=== PATIENT | male | born 1955 | race Caucasian/White ===

== ENCOUNTER 2018-10-13 23:12 | Emergency (ER) | payer BC, OTHER, MEDICAID, SELFPAY ==
[2018-10-13 23:15] VITALS: BP 159/87; PULSE 78; RESP 18; TEMP 36.8; O2SAT 100; BMI 28.0
--- NOTE | 2018-10-13 23:17 | DI.CT.S_ITS ---
PROCEDURE: CT LUMBAR SPINE WO CON INDICATIONS: pain, fall TECHNIQUE: Noncontrast 3 mm thick sections acquired from the T12 level to the sacrum. Sagittal and coronal reformats were constructed. For radiation dose reduction, the following was used: automated exposure control. COMPARISON: [facility], , SPINE LUMB 2 OR 3VW, 09/05/2011, 12:20. FINDINGS: Image quality: Excellent. Bones: There is normal bony alignment. Acute L1 compression fracture involving the superior endplate is noted. L1 compression fracture results in approximately 20% loss of normal vertebral body height. No retropulsed fragments or kyphosis associated with the L1 compression fracture. Left L1 and L2 transverse process fracture is noted. Large Schmorl's node noted in the superior endplate of the L3 vertebral body. No suspicious lytic or blastic bony lesions. Multilevel degenerative disc disease. No pars defects. Soft tissues: No retroperitoneal masses or hematomas. Visualized aorta is normal in caliber. IMPRESSION: 1. Acute L1 compression fracture. 2. Acute left L1 and L2 transverse process fractures. Dictated by: Rebecca Trujillo MD, PhD on 10/14/2018 at 7:23 Approved by: Rebecca Trujillo MD, PhD on 10/14/2018 at 7:27
--- NOTE | 2018-10-13 23:17 | DI.CT.S_ITS ---
PROCEDURE: CT HEAD/BRAIN WO CON INDICATIONS: fall, nauseated TECHNIQUE: Noncontrast 4.5 mm thick angled axial sections acquired from the foramen magnum to the vertex, with coronal and sagittal reformats. For radiation dose reduction, the following was used: automated exposure control, adjustment of mA and/or kV according to patient size. COMPARISON: [facility], CT, CT HEAD WITHOUT CONTRAST, 07/16/2018, 12:30. FINDINGS: Image quality: Excellent. CSF spaces: Basal cisterns are patent. No extra-axial fluid collections. The ventricles are symmetric in size and shape. Brain: No intracranial bleeds or masses. There is cerebral volume loss for age, with resultant ventricular and sulcal prominence. There are periventricular and deep white matter chronic small vessel ischemic changes. There is intracranial internal carotid artery atherosclerosis. Skull and face: Calvarium and visualized facial bones appear intact, without suspicious lesions. Small left parietal scalp hematoma is hyperdense mass; please correlate with direct physical findings. Sinuses: Visualized sinuses and mastoids are clear. IMPRESSION: No acute intracranial disease process. Dictated by: Rebecca Trujillo MD, PhD on 10/14/2018 at 7:20 Approved by: Rebecca Trujillo MD, PhD on 10/14/2018 at 7:22
--- NOTE | 2018-10-13 23:17 | DI.CT.S_ITS ---
PROCEDURE: CT CERVICAL SPINE WO CON INDICATIONS: C7-T1 pain after fall TECHNIQUE: Noncontrast 3 mm thick sections acquired from the skull base to the T4 level. Sagittal and coronal reformats were then constructed. For radiation dose reduction, the following was used: automated exposure control, adjustment of mA and/or kV according to patient size. COMPARISON: None. FINDINGS: Image quality: Excellent. Bones: No fractures or dislocations. Visualized superior ribs are intact. Spine degenerative disc disease and facet arthropathy. Soft tissues: Prevertebral soft tissues are normal in thickness. No paravertebral hematomas. No apical pneumothoraces. IMPRESSION: No fracture. No acute osseous lesion. If symptoms and/or clinical suspicion for pathology persists, evaluation with MRI may be helpful for further assessment. Dictated by: Rebecca Trujillo MD, PhD on 10/14/2018 at 7:27 Approved by: Rebecca Trujillo MD, PhD on 10/14/2018 at 7:31
--- NOTE | 2018-10-13 23:18 | ED_ITS ---
HPI - Fall General Chief Complaint: Fall Stated Complaint: Fall in shower Time Seen by Provider: 10/13/18 23:16 Source: EMS Mode of arrival: EMS History of Present Illness HPI Narrative: Patient is a 62-year-old male who has neuropathy in his feet presenting after a fall in the shower. He said his left leg has been gradually getting weaker he fell in the shower hitting his head and his back in the bath tub. He did not lose consciousness he is not on any anti-platelet or anticoagulation medication. He denies any vomiting but is starting to feel nauseated. He has some neck pain and back pain. he has chronic neuropathy and is a diabetic. His now at bedside states that they were out having a nice dinner. He takes lactulose, would have assuming is liver failure. He states that he was at [facility] for 160 days starting in January. He took his lactulose this evening. When they got home they were trying very quickly to get into the house so he would use the restroom. He unfortunately had an accident. He got into the shower so he could clean up, when he says he lost his balance falling backwards. Related Data Previous Rx's Medication Instructions Recorded hydrocodone-acetaminophen [Avoca] 1 tab PO Q4-6H PRN #10 tab 10/14/18 Allergies Allergy/AdvReac Type Severity Reaction Status Date / Time No Known Drug Allergies Allergy Verified 10/13/18 23:17 Review of Systems Review of Systems ROS Unobtainable: All systems reviewed & are unremarkable except as noted in HPI and below Constitutional Denies chills, Denies fever(s), Denies lethargy and Denies weakness Eyes Denies blind spots and Denies blurry vision ENT Ears, Nose, Mouth, and Throat: Reports neck pain Cardiovascular Denies chest pain, Denies irregular heart rhythm, Denies lightheadedness, Denies palpitations, Denies dyspnea, Denies dyspnea on exertion and Denies orthopnea Respiratory Denies cough, Denies dyspnea, Denies dyspnea on exertion and Denies wheezing Gastrointestinal Gastrointestinal: Denies abdominal pain, Denies change in bowel habits, Denies diarrhea, Denies nausea and Denies vomiting Genitourinary Denies hematuria, Denies flank pain, Denies urinary incontinence and Denies urinary urgency Musculoskeletal Reports as per HPI, Reports back pain, Reports muscle weakness, Reports neck pain and Reports numbness (Chronic neuropathy) Integumentary/Breasts Denies pruritus, Denies erythema, Denies rash and Denies wounds Neurologic Reports as per HPI, Reports numbness (Chronic neuropathy) and Denies weakness Endocrine Denies palpitations Allergic/Immunologic Denies wheezing Exam Initial Vital Signs Initial Vital Signs: Vital Signs Temperature 98.3 F 10/13/18 23:15 Pulse Rate 78 10/13/18 23:15 Respiratory Rate 18 10/13/18 23:15 Blood Pressure 159/87 H 10/13/18 23:15 Pulse Oximetry 100 10/13/18 23:15 GENERAL: Alert well-appearing male and in no acute distress. HEENT: Head atraumatic,EOMI, pupils reactive, face symmetric NECK: The patient is tender midline about C6-C7 area. C-collar is placed in the ED. No step-off appreciated. CARDIOVASCULAR: Regular rate and rhythm without murmurs, rubs or gallops. RESPIRATORY: Breath sounds equal bilaterally, no wheezes rales or rhonchi. ABDOMEN: Soft, nontender. Normoactive bowel sounds all 4 quadrants. No guarding or rebound. BACK: Patient has midline lumbar tenderness no sign of trauma. he is tender at L1-L2 area. No step-offs appreciated : No CVA tenderness EXTREMITIES: Normal range of motion, no clubbing or edema. Neurovascularly intact NEUROLOGICAL: Alert and oriented x4.Normal gait and speech. Cranial nerves II through XII grossly intact. SKIN: Warm, dry, no laceration, no petechiae, no rashes or lesions. [facility] Medical History Alcoholism (Acute) Diabetes (Acute) Neuropathy (Acute) Social History (Updated 10/14/18 @ 04:29 by Bhakti Tony DO) marital status: Smoking Status: Former smoker Social History marital status: Smoking Status: Former smoker Course Orders Ordered: ED Orders 10/13/18 23:17 CT cervical spine wo con Stat CT head/brain wo con Stat CT lumbar spine wo con Stat 10/13/18 23:20 XR hip w pel if done LT 2V Stat Discontinued Medications Hydrocodone Bitart/Acetaminophen (Vicodin Prepack) 1 bottle MISC SEEINSTR ONE Stop: 10/14/18 02:18 Last Admin: 10/14/18 02:21 Dose: 1 bottle Hydrocodone Bitart/Acetaminophen (Avoca 5/325) 2 tab PO NOW ONE Stop: 10/14/18 02:18 Last Admin: 10/14/18 02:24 Dose: 2 tab Ketorolac Tromethamine (Toradol) 30 mg IV NOW ONE Stop: 10/14/18 00:20 Last Admin: 10/14/18 00:00 Dose: 30 mg Ondansetron HCl (Zofran Odt) 4 mg SL NOW ONE Stop: 10/13/18 23:22 Last Admin: 10/14/18 00:22 Dose: Not Given Ondansetron HCl (Zofran) 4 mg IV NOW ONE Stop: 10/14/18 00:20 Last Admin: 10/14/18 00:28 Dose: 4 mg Ondansetron HCl (Zofran) 4 mg IV NOW ONE Stop: 10/14/18 00:20 Last Admin: 10/14/18 00:00 Dose: 4 mg Consultations Consultation #1: Dr. Kaur orthopedics on-call updated and patient's CT. He has reviewed and self. He states patient can go home with walker he will need to follow up in the office to get a back brace. Time: 02:18 Vital Signs - 8 hr 10/13/18 23:15 10/14/18 02:00 Temperature 98.3 F Pulse Rate 78 84 Respiratory Rate 18 16 Blood Pressure 159/87 H Blood Pressure [Left Arm] 148/76 H Pulse Oximetry 100 97 MDM - Fall Imaging Data CT scan - head: Radiologist's impression: Patient report: No acute intracranial trauma CT cervical spine: Radiologist's impression: No significant abnormalities CT lumbar: Radiologist's impression: Acute compression fracture superior endplate of L1. Acute left L1 and L2 transverse process fractures. [facility] Narrative Medical decision making narrative: Actually started becoming quite nauseous and started throwing up while the ED. Head CT is negative. feeling better after things have settled. Zofran seems to help nausea. Patient is ambulatory with a walker without any difficulty at all. I discussed with him and showed him the had to get up safely with log rolling. I discussed with and patient that he will need a back brace. They understand agree they would like to go home. They will follow up with Orthopedics tomorrow. Ortho has also been given patient's contact information. Discharge Plan Departure Patient Disposition: Home Clinical Impression: Fracture of transverse process of lumbar vertebra Qualifiers: Encounter type: initial encounter Fracture type: closed Qualified Code(s): S32.009A - Unspecified fracture of unspecified lumbar vertebra, initial encounter for closed fracture Closed compression fracture of L1 vertebra Qualifiers: Encounter type: initial encounter Qualified Code(s): S32.010A - Wedge compression fracture of first lumbar vertebra, initial encounter for closed fracture Discharge Date/Time: 10/14/18 02:48 Interventions: ED Discharge Assessment Last Done: 10/14/18 02:48 Instructions: Vertebral Compression Fracture, DI for Transverse Process Fracture Activity Restrictions/Additional Instructions: *You have been diagnosed with L1 compression fracture, transverse process fractures of L1 and L2 *What to do: Logroll to sit up. You will need a back brace which will be provided by Orthopedics tomorrow. Walk with a walker or cane. *Continue to take medications as directed Avoca 1 tablet every 4 hours or 2 tablets every 6 hours *Follow up with your primary care provider in 2-3 days, call Orthopedics tomorrow 1st thing in the morning for follow-up. Dr. Kaur is aware *Return to ER if you should have increasing weakness, loss of urine or bowel that is abnormal, increasing pain or any new, worsening or concerning symptoms CONTROLLED SUBSTANCE DISCHARGE (Narcotoic/benzodiazepine/Flexeril/Phenergan) 1. You have been prescribed narcotic medications, it does have acetaminophen/Tylenol/paracetamol in it so do not take extra Tylenol or Tylenol containing products 2. Please understand that we cannot provide further refills of narcotics, benzodiazepines or controlled substances through the ED and her pain management will need to be through your provider. 3. While on these medications you cannot drive or operate heavy machinery. 4. You cannot sign legal documents or perform any duties such as this. 5. As long as you're taking opiate pain medications he should also be taking a stool softener such as Colace, Dulcolax, MiraLAX or prune juice, to help avoid constipation. Prescriptions: New hydrocodone-acetaminophen [Avoca] 5-325 mg tablet 1 tab PO Q4-6H PRN (Reason: pain) Qty: 10 RF: 0 Referrals: [facility] [Provider Group]
--- NOTE | 2018-10-13 23:20 | DI.RAD.S_ITS ---
PROCEDURE: XR HIP W PEL IF DONE LT 2V INDICATIONS: fall pain TECHNIQUE: AP pelvis with lateral view of the left hip. COMPARISON: None. FINDINGS: Bones: No displaced fractures or dislocations. Pelvic ring appears intact. There are degenerative changes in the lower lumbar spine. No suspicious bony lesions. Soft tissues: The visualized bowel gas pattern is normal. No suspicious soft tissue calcifications. IMPRESSION: 1. No fracture or dislocation identified. Concordant with preliminary interpretation. Dictated by: David Alvarenga M.D. on 10/14/2018 at 9:13 Approved by: David Alvarenga M.D. on 10/14/2018 at 9:16
[2018-10-14] MEDS: KETOROLAC 60 MG/2 ML VIAL 30 MG IV
[2018-10-14] MEDS: ONDANSETRON 4 MG/2 ML INJ IV ×2 (00:28)
--- NOTE | 2018-10-14 00:36 | PC.NURSE ---
Accompanied patient to CT and xray for C-spine stabilization. Pt feeling nauseous. Administered 4mg Zofran IV prior to going to Radiology department, which helped nausea. On the way back from Radiology, pt felt nauseous again and vomited. Supported C-spine while pt vomited. Assisted pt back to his room, cleaned him up, and gave another 4mg Zofran IV, which helped his nausea. Provider aware. Denies new symptoms or pain after transfer from Radiology.
[2018-10-14 02:00] VITALS: BP 148/76; PULSE 84; RESP 16; O2SAT 97
[2018-10-14] MEDS: HYDROCODONE/ACET 5/325 PREPACK 1 BOTTLE MISC (02:21)
[2018-10-14] MEDS: HYDROCODONE/ACET 5/325 TABLET 2 TAB PO (02:24)
== END 2018-10-14 02:48 | disposition home or self-care (01) ==
PROVIDERS: Emergency Provider Emergency Medicine
DX: S32.010A Wedge compression fracture of first lumbar vertebra, initial encounter for closed fracture (principal); S09.90XA Unspecified injury of head, initial encounter; M54.2 Cervicalgia; R11.2 Nausea with vomiting, unspecified; E11.8 Type 2 diabetes mellitus with unspecified complications; W18.39XA Other fall on same level, initial encounter; Y93.E1 Activity, personal bathing and showering
CPT/HCPCS: 36591; 70450; 72125; 72131; 73502; 96374; 96375; 99282; 99284; J1885; J2405

== ENCOUNTER 2019-04-06 14:14 | Outpatient (CLI) | payer BC, OTHER, MEDICAID, SELFPAY ==
[2019-04-06] VITALS (8 sets, daily range): BP systolic 131–147; BP diastolic 70–84; PULSE 68–83; RESP 16–18; TEMP 36.2; O2SAT 96–99
--- NOTE | 2019-04-06 14:20 | DI.RAD.S_ITS ---
PROCEDURE: PAIN L INTERLAMINAR/CAUDAL INJ INDICATIONS: COCCYX FRACTURE FINDINGS: Fluoroscopic spot filming was performed to verify placement of spinal needles at the coccyx level(s), as labeled on the films. Appropriate location(s) of the needle tip(s) was confirmed by injection of iodinated contrast. IMPRESSION: Fluoroscopy for pain management. Dictated by: Angelica Zarate M.D. on 04/06/2019 at 16:00 Approved by: Angelica Zarate M.D. on 04/06/2019 at 16:00
[2019-04-06] MEDS: MIDAZOLAM 5 MG/5 ML VIAL IV (15:17)
[2019-04-06] MEDS: fentaNYL 100 MCG/2 ML INJ 50 MCG IV (15:17)
[2019-04-06] MEDS: BETAMETHASONE 30 MG/5 ML MDV 12 MG INJ (15:24)
[2019-04-06] MEDS: IOPAMIDOL 15 ML VIAL 3 ML INJ (15:24)
[2019-04-06] MEDS: BUPIVACAINE 0.5% (PF) VIAL 2 ML INJ (15:24)
--- NOTE | 2019-04-06 15:28 | PC.NURSE ---
ASSISTING PT OFF TABLE AND TRANSPORTING TO POST PROC AREA IN STABLE CONDITION. PASSING RN CARE OF PT OFF TO MICHELLE Chery RN.
--- NOTE | 2019-04-06 15:30 | P.PCN_ITS ---
Procedures Date/Time Date of procedure: 04/06/19 Time of procedure: 15:30 General Procedure description: PREOP DIAGNOSIS 1. MULTILEVEL SPINAL STENOSIS, 2. POST FUSION SYNDROME, POST OP DIAGNOSIS 1. MULTILEVEL SPINAL STENOSIS, 2. POST FUSION SYNDROME, PROCEDURES 1. FLUOROSCOPICALLY GUIDED CONTRAST CONTROLLED COCCYX STEROID INJECTION SURGEON: Hung Chang, DO INDICATIONS Kin is referred by Dr. Healy for treatment of Multilevel Stenosis FINDINGS Coccyx Fx s/p Fall DESCRIPTION OF PROCEDURE Fluoroscopically guided, contrast controlled coccyx epidural steroid injection with Conscious Sedation Following review of allergy and review of potential side effects and complications, including but not necessarily limited to infection, allergic reaction, local tissue breakdown, temporary or permanent nerve injury, stroke, paralysis, and possible , the patient indicated that they understood and agreed to proceed. An informed consent document was signed by the patient, witnessed by a nurse, and placed in the patient's chart. Additionally, other treatment options including medications, modalities, and physical therapy were reviewed with the patient. After review of previous anaesthesic history and IV conscious sedation the patient was deemed safe to proceed with todays procedure with IV conscious sedation as ASA class II designation. Safety time-out was performed to confirm patient ID, procedure to be performed and site of procedure. IV sedation was accomplished with a combination of 2mg of Versed and 50mcg of Fentanyl administered by the RN after DO order, titrated to patient comfort during the co urse of the procedure while the patient remained responsive to all verbal commands In the prone position, following sterile prep and drape of the lumbar region, the coccyx was identified fluoroscopically. The skin was anesthetized via a 25- gauge, 1.5-inch needle with approximately 2cc of 1% lidocaine solution. At this point, a 25-gauge, 2.5-inch needle was atraumatically introduced and advanced under fluoroscopic guidance to the corresponding sacral hiatus and entering the sacral canal. Following negative aspiration, injection of approximately 0.3 cc of Isovue 300 confirmed interarticular placement without vascular uptake. Radiological data, including multiple fluoroscopic views of the lumbosacral spine, reveal a spinal needle in the Sacro-coccygeal joint. Subsequent views show flow of contrast material superiorly and inferiorly in the coccyx without vascular or intrathecal uptake. At this point, a total of 6 cc including 2cc or 12mg of betamethasone and 1cc of 0.25% marcaine solution was injected without complication. The patient tolerated the procedure well without signs or symptoms of complications prior to transfer to the recovery area continued monitoring withou t incident. The patient was then transferred to the recovery area where they were observed for an appropriate period of time after the injection. The patient reported a VAS score of 8 prior to the procedure and a post-procedure VAS of 2. Fluorscopy Time: 16.7sec Total Conscious Sedation Time: 24min POST OP INSTRUCTIONS The patient was provided a Pain Log to continue to record their response to the target-specific procedure prior to their follow-up visit with the referring physician. Additionally, specific post-injection care instructions and a contact number to our office were provided if concerns arise regarding possible complications associated with the procedure are suspected. Hung Chang DO Complications: none
== END 2019-04-06 16:05 | disposition home or self-care (01) ==
LOC: RAD 14:19
PROVIDERS: Visit Provider Physical Medicine & Rehabilitation
DX: M48.07 Spinal stenosis, lumbosacral region (principal); M48.061 Spinal stenosis, lumbar region without neurogenic claudication; M53.3 Sacrococcygeal disorders, not elsewhere classified; S32.2XXA Fracture of coccyx, initial encounter for closed fracture; W19.XXXA Unspecified fall, initial encounter; Z98.1 Arthrodesis status
CPT/HCPCS: 62323; 99152; J0702; J1100; J2250; J3010

== ENCOUNTER → 2020-04-26 10:32 | Outpatient (CLI) | payer MEDICARE, BC, SELFPAY ==
[2020-04-26 12:05] LABS: Add Manual Diff / Slide Review NO; Basophils Absolute Auto 0 /uL (0-100); Basophils Percent Auto 0.3 % (0-2); Eosinophils Absolute Auto 500 /uL (0-450); Eosinophils Percent Auto 5.5 % (2-4); Hematocrit 41.9 % (41-53); Hemoglobin 14.1 g/dL (13.5-17.5); Lymphocytes Absolute Auto 1900 /uL (1100-4500); Lymphocytes Percent Auto 22.8 % (25-40); Mean Corpuscular HGB Conc 33.6 % (30-36); Mean Corpuscular Hemoglobin 28.4 PG (26-34); Mean Corpuscular Volume 84.6 fL (80-100); Monocytes Absolute Auto 700 /uL (0-900); Monocytes Percent Auto 7.8 % (3-14); Neutrophils Absolute Auto 5300 /uL (1500-7000); Neutrophils Percent Auto 63.6 % (50-75); Platelet Count 150 X10^3/uL (150-400); Red Blood Cell Count 4.96 X10^6/uL (4.5-5.9); Red Cell Distribution Width 14.4 % (11.6-14.8); White Blood Cell Count 8.4 X10^3/uL (4.5-11.0)
[2020-04-26 12:26] LABS: BUN Creatinine Ratio 22.9 (6-22); Blood Urea Nitrogen 19 mg/dL (9-20); Calcium 9.9 mg/dL (8.4-10.2); Carbon Dioxide 25 mmol/L (22-32); Chloride 100 mmol/L (98-107); Estimated Glomerular Filt Rate > 60.0 mL/min (>60); Glucose 296 mg/dL (80-110); HEMOLYSIS < 15 (0-50); Potassium 3.9 mmol/L (3.4-5.1); Sodium 136 mmol/L (137-145)
[2020-04-26 13:13] LABS: COVID19 -Nasal RAPID Negative (Negative)
== END ==
PROVIDERS: Physician Assistant; PCP Nurse Practitioner; Referring Provider Orthopaedic Surgery; Visit Provider Orthopaedic Surgery
DX: Z01.818 Encounter for other preprocedural examination (principal); Z01.812 Encounter for preprocedural laboratory examination; Z11.59 Encounter for screening for other viral diseases
CPT/HCPCS: 36415; 80048; 85025; 87635; 93005

== ENCOUNTER 2020-04-27 13:22 | Day surgery (SDC) | payer MEDICARE, BC, SELFPAY ==
[2020-04-25 07:34] VITALS: BMI 26.9
[2020-04-27] VITALS (8 sets, daily range): BP systolic 151–175; BP diastolic 70–81; PULSE 60–68; RESP 12–18; TEMP 36.2–36.4; O2SAT 95–98; BMI 26.9
--- NOTE | 2020-04-27 | DI.RAD.S_ITS ---
PROCEDURE: XR LUMBAR SPINE 2-3V INDICATIONS: L4 KYPHOPLASTY TECHNIQUE: 6 views of the lumbar spine were acquired. COMPARISON: None. FINDINGS: Spot fluoroscopic intraoperative findings demonstrating L4 kyphoplasty. Expected intraoperative appearance. Dictated by: Martinez Espinal M.D. on 04/28/2020 at 10:40 Approved by: Martinez Espinal M.D. on 04/28/2020 at 10:41
--- NOTE | 2020-04-27 | PATH_ITS ---
[facility] Accession Number: [id number] . 01 Material submitted: . vertebral column - L4 VERTEBRAL BIOPSY . 01 Clinical history: . SDC . 01 Diagnosis: Bone, L4 Vertebral, Biopsy: Trabecular bone with new bone formation, marrow fibrosis, and scant hematopoietic elements. Negative for malignancy. [facility] 05/02/2020 1523 Local . 01 Comment: An *immunostain to broad spectrum cytokeratins, DOMITILA, is performed, with the control stained appropriately, which is negative for an occult metastatic carcinoma. . * This test was developed and its performance characteristics determined by [employer] It has not been cleared or approved by the U.S. Food and Drug Administration. The FDA has determined that such clearance or approval is not necessary. This test is used for clinical purposes. It should not be regarded as investigational or for research. . 01 Electronically signed: . Farzana Stevens MD, Pathologist NPI- [id number] . 01 Gross description: . L4 VERTEBRAL BIOPSY: Received in formalin are 2 fragment(s) of glez, hard bone measuring 0.6 x 0.3 x 0.3 cm to 0.7 x 0.3 x 0.3 cm submitted entirely in 1 cassette(s) /QBJ 04/28/2020 0647 Local . 01 Pathologist provided ICD-10: S32.040A . 01 CPT . 064448, [id number] Performed at: 01 [facility] [address] [place] [address], [place], [place] [id number] MD David Venegas MD Phone: [phone]
[2020-04-27] MEDS: LACTATED RINGERS 1,000 ML 42 ML IV (13:49)
--- NOTE | 2020-04-27 14:23 | PM.PREOP ---
Pre-operative Note COVID-19 COVID-19 status: Negative Result date/Date tested (Pos, Neg/Pending): 04/26/20 Interval Note History & Physical reviewed/Exam performed by Physician: Yes Changes to H&P: No
--- NOTE | 2020-04-27 15:15 | PM.OP.1 ---
Operative Date/Time/Diagnoses Date of procedure: 04/27/20 Time of procedure: 15:51 Pre-op diagnosis: L4 compression fracture Osteoporosis with current pathologic fracture Back pain Post-op diagnosis: same Procedure & Clinicians Procedure: L4 kyphoplasty Same procedure as scheduled: Yes Indications: [age] year old male with intractable pain from an acute L4 compression fracture. They had failed conservative management and requested operative intervention. Risks and benefits of surgery were discussed and appropriate consents were obtained. Surgeon: Antolin Healy Click Yes if Unassisted: Yes Operative Notes Findings: None Closure Type: primary Specimen(s): other (L4 bone biopsy) Estimated Blood Loss (mL): 5 Procedure in detail: The patient was brought to the operating room and intubated on the table. They were then rolled over to the well-padded prone position. Time-out was performed. We confirmed positioning with two fluoroscopy views. The back was prepped and draped in the standard sterile fashion. Preoperative antibiotics were given. Using fluoroscopic guidance, the planned incision site was infiltrated with Marcaine with epinephrine and injected down to the entry site of the left pedicle of L4. A small stab incision was made and we advanced a Jamshiedi needle down the left pedicle into the vertebral body. A bone biopsy was harvested from this and sent to pathology. We then passed the DFine osteotome and opened it up to create a void inside the vertebral body. We then began injecting the cement. This was done with frequent fluoroscopy imaging. There was no extravasation. Once we had good fill of the L4 vertebral body the injection was stopped and the trocars were removed. Final x-rays were taken. The wound was cleaned. Steri-Strips and sterile dressing were placed. Patient was rolled over, extubated, and brought to recovery without complications. Complications: none Post-operative Condition: stable Disposition: PACU Plan for aftercare: Outpatient. Activity as tolerated.
[2020-04-27] MEDS: CEFAZOLIN 2 GM/100 ML FROZ.PIGGY IV (15:20)
--- NOTE | 2020-04-27 15:37 | SUR.OPER ---
Prone on spine table, head in foam head support, padded chest and pelvic supports, gel pad at knees, lower legs supported by pillows; nipples, genitalia and toes free of pressure, arms secured on foam padded arm boards at <90 degrees abduction. Tape over blanket at thigh secured to table.
[2020-04-27] MEDS: BUPIVACAINE 0.25% W/ EPI (PF) 10 ML VIAL 20 ML INJ (15:43)
[2020-04-27] MEDS: HYDROMORPHONE 2 MG INJ IV ×2 (15:59→16:19)
[2020-04-27] MEDS: ONDANSETRON 4 MG/2 ML INJ IV (15:59)
[2020-04-27] MEDS: fentaNYL 100 MCG/2 ML INJ IV ×2 (16:00→16:18)
[2020-04-27] MEDS: OXYCODONE/ACETAMINOPHEN 5/325 TABLET 1 TAB PO ×2 (16:08→16:39)
== END 2020-04-27 17:17 | disposition home or self-care (01) ==
PROVIDERS: PCP Nurse Practitioner; Referring Provider Orthopaedic Surgery; Visit Provider Orthopaedic Surgery
PROC: (CPT 22514; principal; 2020-04-27 15:15)
DX: M80.08XA Age-related osteoporosis with current pathological fracture, vertebra(e), initial encounter for fracture (principal); I10 Essential (primary) hypertension; E11.9 Type 2 diabetes mellitus without complications; Z79.84 Long term (current) use of oral hypoglycemic drugs
CPT/HCPCS: 22514; 72100; 76000; 82962; C1776; J0330; J0690; J1170; J2405; J2704; J3010

== ENCOUNTER 2020-05-30 06:02 | Day surgery (SDC) | payer MEDICARE, BC, SELFPAY ==
[2020-05-30] VITALS (10 sets, daily range): BP systolic 143–162; BP diastolic 65–80; PULSE 61–77; RESP 14–16; TEMP 36.3–37; O2SAT 92–97; BMI 31.5
--- NOTE | 2020-05-30 | PATH_ITS ---
[facility] Accession Number: [id number] . 01 Material submitted: . bone - L5 VERTEBRAL BODY BIOPSY . 01 Diagnosis: Bone, L5 Vertebral, Biopsy: Trabecular bone with focal new bone formation and maturing trilinear hematopoiesis. Negative for malignancy. [facility]V 06/05/2020 1456 Local . 01 Comment: This case is also reviewed by hematopathologist, Dr. Isabelle Vizcarra, who concurs with the given interpretation. . 01 Electronically signed: . Farzana Stevens MD, Pathologist NPI- [id number] . 01 Gross description: . Received in formalin, labeled L5 vertebral biopsy, and consists of a 0.6 cm in length by 0.3 cm in diameter glez-brown core of bone which is entirely submitted following decalcification in cassette A1. ([id number]) /MRV 06/01/2020 1448 Local . 01 Pathologist provided ICD-10: S32.050A . 01 CPT . 840772, [id number] Performed at: 01 [facility] [address] [place] [address], [place], [place] [id number] MD David Venegas MD Phone: [phone]
--- NOTE | 2020-05-30 | DI.RAD.S_ITS ---
PROCEDURE: XR LUMBAR SPINE 2-3V INDICATIONS: Compression fracture. TECHNIQUE: 2 views of the lumbar spine were acquired. COMPARISON: [facility], CR, XR LUMBAR SPINE 2-3V, 04/27/2020, 15:29. FINDINGS: Intraoperative images demonstrate postprocedural changes compatible with L4 and L5 percutaneous kyphoplasty. IMPRESSION: Expected postoperative change for L4 and L5 kyphoplasty. Dictated by: Rebecca Trujillo MD, PhD on 05/30/2020 at 17:12 Approved by: Rebecca Trujillo MD, PhD on 05/30/2020 at 17:13
[2020-05-30 07:06] LABS: Add Manual Diff / Slide Review NO; Basophils Absolute Auto 100 /uL (0-100); Basophils Percent Auto 0.7 % (0-2); Eosinophils Absolute Auto 400 /uL (0-450); Eosinophils Percent Auto 4.9 % (2-4); Hematocrit 39.2 % (41-53); Hemoglobin 12.9 g/dL (13.5-17.5); Lymphocytes Absolute Auto 2400 /uL (1100-4500); Mean Corpuscular HGB Conc 32.9 % (30-36); Monocytes Absolute Auto 800 /uL (0-900); Monocytes Percent Auto 10.2 % (3-14); Neutrophils Absolute Auto 4100 /uL (1500-7000); Neutrophils Percent Auto 53.2 % (50-75); Platelet Count 133 X10^3/uL (150-400); Red Blood Cell Count 4.61 X10^6/uL (4.5-5.9); Red Cell Distribution Width 14.6 % (11.6-14.8); White Blood Cell Count 7.7 X10^3/uL (4.5-11.0)
[2020-05-30 07:16] LABS: BUN Creatinine Ratio 25.6 (6-22); Blood Urea Nitrogen 20 mg/dL (9-20); Calcium 9.3 mg/dL (8.4-10.2); Carbon Dioxide 27 mmol/L (22-32); Chloride 107 mmol/L (98-107); Estimated Glomerular Filt Rate > 60.0 mL/min (>60); Glucose 131 mg/dL (80-110); HEMOLYSIS < 15 (0-50); Potassium 4.4 mmol/L (3.4-5.1); Sodium 139 mmol/L (137-145)
[2020-05-30 07:17] LABS: COVID19 -Nasal RAPID Negative (Negative)
--- NOTE | 2020-05-30 07:19 | PM.PREOP ---
Pre-operative Note COVID-19 COVID-19 status: Negative Result date/Date tested (Pos, Neg/Pending): 05/30/20 Interval Note History & Physical reviewed/Exam performed by Physician: Yes Changes to H&P: No
--- NOTE | 2020-05-30 07:36 | SUR.OPER ---
Prone on padded OR bed, head in foam head support, gel chest rolls, gel pad under knees, pillow under lower legs, toes free of pressure, arms secured on padded arm boards at <90 degrees abduction. Safety belt at thigh.
[2020-05-30] MEDS: LACTATED RINGERS 1,000 ML 42 ML IV (07:48)
[2020-05-30] MEDS: CEFAZOLIN 2 GM/100 ML FROZ.PIGGY IV (07:56)
[2020-05-30] MEDS: BUPIVACAINE 0.25% W/ EPI (PF) 10 ML VIAL 20 ML INJ (08:29)
--- NOTE | 2020-05-30 08:53 | PM.OP.1 ---
Operative Date/Time/Diagnoses Date of procedure: 05/30/20 Time of procedure: 08:53 Pre-op diagnosis: L5 osteoporotic compression fracture with back pain Post-op diagnosis: same Procedure & Clinicians Procedure: L5 kyphoplasty Same procedure as scheduled: Yes Indications: [age] year old male with intractable pain from an acute L5 compression fracture. They had failed conservative management and requested operative intervention. Risks and benefits of surgery were discussed and appropriate consents were obtained. Surgeon: Antolin Healy Click Yes if Unassisted: Yes Anesthesia Type: General Operative Notes Findings: none Closure Type: primary Specimen(s): other (L5 vertebral body biopsy) Estimated Blood Loss (mL): 5 Procedure in detail: The patient was brought to the operating room and intubated on the table. They were then rolled over to the well-padded prone position. Time-out was performed. We confirmed positioning with two fluoroscopy views. The back was prepped and draped in the standard sterile fashion. Preoperative antibiotics were given. Using fluoroscopic guidance, the planned incision sites Were infiltrated with Marcaine with epinephrine and injected down to the entry site of the Bilateral L5 pedicles. A small stab incision was made on each side and we advanced a Jamshiedi needle down the bilateral pedicles into the vertebral body. A bone biopsy was harvested from this and sent to pathology. We then passed the DFine osteotome and opened it up to create a void inside the vertebral body from both sides. We then began injecting the cement. This was done with frequent fluoroscopy imaging. There was no extravasation. Once we had good fill of the L5 vertebral body the injection was stopped and the trocars were removed. Final x-rays were taken. The wound was cleaned. Steri-Strips and sterile dressing were placed. Patient was rolled over, extubated, and brought to recovery without complications. Complications: none Post-operative Condition: stable Disposition: PACU Plan for aftercare: Outpatient. Activity as tolerated
[2020-05-30] MEDS: hydrOXYzine pamoate 25 MG CAPSULE PO (09:25)
[2020-05-30] MEDS: OXYCODONE IR 5 MG TABLET PO (09:25)
== END 2020-05-30 10:07 | disposition home or self-care (01) ==
PROVIDERS: PCP Nurse Practitioner; Referring Provider Nurse Practitioner; Visit Provider Orthopaedic Surgery
PROC: (CPT 22514; principal; 2020-05-30 07:45)
DX: M80.08XA Age-related osteoporosis with current pathological fracture, vertebra(e), initial encounter for fracture (principal); M54.5 Low back pain; W18.30XA Fall on same level, unspecified, initial encounter; Y92.009 Unspecified place in unspecified non-institutional (private) residence as the place of occurrence of the external cause; E11.9 Type 2 diabetes mellitus without complications; Z79.4 Long term (current) use of insulin; I10 Essential (primary) hypertension; F32.9 Major depressive disorder, single episode, unspecified; F10.20 Alcohol dependence, uncomplicated; Z01.812 Encounter for preprocedural laboratory examination; Z20.828 Contact with and (suspected) exposure to other viral communicable diseases
CPT/HCPCS: 22514; 36415; 72100; 76000; 80048; 82962; 85025; 87635; C1776; J0330; J0690; J2250; J2405; J2704; J3010

== ENCOUNTER → 2020-07-18 09:50 | Outpatient (CLI) | payer MEDICARE, SELFPAY ==
[2020-07-18 12:36] LABS: COVID19 -Nasal RAPID Negative (Negative)
== END ==
PROVIDERS: PCP Nurse Practitioner; Visit Provider Physical Medicine & Rehabilitation
DX: Z20.822 Contact with and (suspected) exposure to COVID-19 (principal)
CPT/HCPCS: 87635; C9803

== ENCOUNTER 2020-07-20 08:16 | Outpatient (CLI) | payer MEDICARE, OTHER, SELFPAY ==
--- NOTE | 2020-07-20 08:19 | DI.RAD.S_ITS ---
PROCEDURE: PAIN L/S TRANSFORAMINAL INJECT INDICATIONS: SPONDYLOSIS COMPARISON: [facility], CT, CT LUMBAR SPINE WITHOUT CONTRAST, 06/14/2020, 19:52. [facility], CR, XR LUMBAR SPINE 2-3V, 05/30/2020, 8:35. FINDINGS: Fluoroscopic spot filming was performed to verify placement of a spinal needle at the L4-L5 level, as labeled on the films. Appropriate location of the needle tip was confirmed by injection of iodinated contrast. IMPRESSION: Intraprocedural examination within normal limits. Dictated by: Mekhi Sharma M.D. on 07/20/2020 at 9:16 Approved by: Mekhi Sharma M.D. on 07/20/2020 at 9:18
[2020-07-20 08:45] VITALS: BP 128/70; PULSE 70; RESP 18; TEMP 36.8; O2SAT 96
[2020-07-20 09:21] VITALS: BP 135/85; PULSE 68; RESP 23; O2SAT 98
[2020-07-20] MEDS: MIDAZOLAM 5 MG/5 ML VIAL IV (09:23)
[2020-07-20 09:26] VITALS: BP 123/67; PULSE 66; RESP 15; O2SAT 95
[2020-07-20] MEDS: BUPIVACAINE 0.25% (PF) VIAL 2 ML INJ (09:27)
[2020-07-20] MEDS: BETAMETHASONE 30 MG/5 ML MDV 6 MG INJ (09:27)
[2020-07-20] MEDS: IOPAMIDOL 15 ML VIAL 3 ML INJ (09:27)
[2020-07-20] MEDS: DEXAMETHASONE 10 MG/ML VIAL 20 MG INJ (09:27)
[2020-07-20 09:31] VITALS: BP 129/73; PULSE 65; RESP 15; O2SAT 96
--- NOTE | 2020-07-20 09:39 | P.PCN_ITS ---
Date/Time/Diagnoses Date of procedure: 07/20/20 Time of procedure: 09:39 Pre-procedure diagnosis: 1. FORAMINAL STENOSIS WITH LE SYMPTOMS Post-procedure diagnosis: same Procedure Notes Procedure: 1. FLUOROSCOPICALLY GUIDED CONTRAST CONTROLLED TRANSFORAMINAL EPIDURAL STEROID INJECTION - LEFT L4/5 Indications: Kin is referred by Dr. Healy and KIERAN Mccann for treatment of Foraminal Stenosis with Left LE Symptoms Physician: Hung Chang Total Fluoroscopy time (seconds): 11 Total sedation minutes: 9 Complications: none Procedure in detail & Post-procedure care: FINDINGS Foraminal Nerve Root Compression secondary to disc disease and facet hypertrophy DESCRIPTION OF PROCEDURE Following review of allergy and review of potential side effects and complications, including, but not necessarily limited to, infection, allergic reaction, local tissue breakdown, stroke, temporary or permanent nerve injury, paralysis, and possible , the patient indicated that the patient understood and agreed to proceed. An informed consent document was signed by the patient, witnessed by a nurse, and placed in the patient's chart. Additionally, other treatment options including medications, modalities, and physical therapy were reviewed with the patient. After review of previous anaesthesic history and IV conscious sedation the patient was deemed safe to proceed with today?s procedure with IV conscious sedation as ASA class II designation. Safety time-out was performed to confirm patient ID, procedure to be performed and site of procedure. IV sedation was accomplished with a combination of 2mg of Versed administered by the RN after DO order, titrated to patient comfort during the course of the procedure while the patient remained responsive to all verbal commands In the prone position following sterile prep and drape of the lumbar region, the left L4/5 posterior neuroforamen was identified fluoroscopically. The skin was anesthetized via a 25-gauge 1.5-inch needle with 1% lidocaine solution. At this point, a 25-gauge 3.5-inch spinal needle was atraumatically introduced and advanced under fluoroscopic guidance through the posterior left L4/5 neuroforamen to approximately the anterior aspect of the canal. Depth was confirmed on lateral view. Following negative aspiration, injection of approximately 1.5 cc of Isovue 200 under live fluoroscopy in the AP view co nfirmed excellent flow along the nerve root, into the epidural space without vascular or intrathecal uptake observed Radiological data, including multiple fluoroscopic views of the lumbosacral spin e, reveal a spinal needle at the left L4/5 posterior neuroforamen. Subsequent views show flow of contrast material flowing superiorly and inferiorly along the nerve root confirming epidural flow. Subsequently, a test dose of 1.5 cc of 1% lidocaine solution was administered and patient was observed for two minutes for signs or symptoms of complications, including abdominal pain, shortness of breath, bilateral upper or lower extremity weakness, nausea and vomiting, prior to steroid injection. At this point, a total of 3cc or 20mg of dexamethasone and 6mg of betamethasone was injected without incident. The procedure tolerated the procedure well without signs or symptoms of complications prior to transfer to the recovery area continued monitoring without incident. The patient was then transferred to the recovery area where they were observed for an appropriate time after the injection. The patient reported a VAS score of 7 prior to the procedure and a post- procedure VAS of 0. POST OP INSTRUCTIONS The patient was provided a Pain Log to continue to record their response to the target-specific procedure prior to follow-up visit with their referring physician. Additionally, specific post-injection care instructions and a contact number to our office were provided if concerns arise regarding possible complications associated with the procedure are suspected.
[2020-07-20 09:45] VITALS: BP 134/70; PULSE 64; RESP 24; O2SAT 98
[2020-07-20 09:50] VITALS: BP 138/72; PULSE 65; RESP 22; TEMP 36.6; O2SAT 96
== END 2020-07-20 09:50 | disposition home or self-care (01) ==
LOC: RAD 08:18
PROVIDERS: PCP Nurse Practitioner; Referring Provider Physical Medicine & Rehabilitation; Visit Provider Physical Medicine & Rehabilitation
DX: M54.17 Radiculopathy, lumbosacral region (principal)
CPT/HCPCS: 64483; J0702; J1100; J2250; J3010

== ENCOUNTER 2021-02-07 20:53 | Emergency (ER) | payer MEDICARE, SELFPAY ==
[2021-02-07] VITALS (9 sets, daily range): BP systolic 155–177; BP diastolic 51–81; PULSE 82–86; RESP 16; TEMP 38; O2SAT 93–96; BMI 35.0
--- NOTE | 2021-02-07 20:58 | DI.RAD.S_ITS ---
PROCEDURE: XR CHEST 1V INDICATIONS: suspected sepsis TECHNIQUE: One view of the chest was acquired. COMPARISON: None. FINDINGS: Surgical changes and devices: None. Lungs and pleura: Lungs are clear. No pleural effusions or pneumothorax. Mediastinum: Mediastinal contours appear normal. Cardiomegaly Bones and chest wall: No suspicious bony lesions. Overlying soft tissues appear unremarkable. IMPRESSION: Cardiomegaly. No gross pulmonary infiltrates. Dictated by: Quintin Collins M.D. on 02/07/2021 at 21:18 Approved by: Quintin Collins M.D. on 02/07/2021 at 21:19
--- NOTE | 2021-02-07 21:19 | DI.CT.S_ITS ---
PROCEDURE: CT ABDOMEN PELVIS W CON INDICATIONS: septic, abdominal pain, recent GB surgery TECHNIQUE: After the administration of intravenous contrast, axial sections acquired from the lung bases to the pubic symphysis. Coronal and sagittal reformats were performed. For radiation dose reduction, the following was used: automated exposure control, adjustment of mA and/or kV according to patient size. COMPARISON: [facility], CT, CT ABDOMEN PELVIS WITH CONTRAST, 01/08/2021, 13:33. [facility], CR, XR CHOLANGIOGRAM EXISTING CATHETER, 01/12/2021, 10:46. FINDINGS: Image quality: Excellent. Lung bases: Minimal bibasilar atelectasis.. Heart: Coronary artery calcifications. ABDOMEN: Liver: Unremarkable. Gallbladder: A cholecystostomy tube is in place. Biliary ducts: Unremarkable. Pancreas: Unremarkable. Spleen: Unremarkable. Adrenal Glands: Unremarkable. Kidneys and Ureters: Unremarkable. Stomach and Bowel: Stomach, small bowel loops, and colon are unremarkable. Peritoneum: Minimal perihepatic fluid. No free air or abscess cavity. Ventral Wall: No hernias. Abdominal Nodes: No retroperitoneal or mesenteric adenopathy by size criteria. Vessels: Aorta and inferior vena cava are normal in size. PELVIS: Pelvic Organs: Unremarkable. Bladder: Distended without thickened wall.. Pelvic Nodes: No enlarged lymph nodes. Miscellaneous: No hernias are seen. Bones: Remote percutaneous cement fixation of L4 and L5 vertebral bodies. No acute compression fractures. No lytic or blastic bony lesions. IMPRESSION: 1. Cholecystostomy tube. 2. Minimal bibasilar atelectasis. 3. Moderately large fecal debris. 4. Distended bladder. Dictated by: Quintin Collins M.D. on 02/07/2021 at 22:22 Approved by: Quintin Collins M.D. on 02/07/2021 at 22:26
--- NOTE | 2021-02-07 21:19 | ED.ABDPAIN ---
HPI - Abdominal Pain General Chief Complaint: Abdominal Pain Stated Complaint: ABD pain Time Seen by Provider: 02/07/21 21:08 Source: patient and EMS Mode of arrival: EMS History of Present Illness HPI narrative: 65-year-old male nonsmoker with history of gallbladder disease presents by EMS for evaluation of severe epigastric and right upper quadrant pain over the course of the day. He has no nausea, vomiting or diarrhea. He has been having bowel movements and passing gas. He was seen and evaluated at [facility] on January 05 and was admitted for cholecystitis with elevated bilirubin and lactate as well as leukocytosis but normal LFTs and alk-phos. CT scan suggested cholecystitis. Surgical consultation resulted and a trip to the operating room for a lap choly which resulted in a necrotic appearing gallbladder. In the end he received a cholecystectomy with follow-up cholangiogram which was unremarkable. Is worse when he moves and improves with rest. It is largely in his right upper quadrant and does not radiate. He has felt feverish and had an initial temp of 100.4 and septic Related Data Previous Rx's Medication Instructions Recorded hydrocodone 5 mg-acetaminophen 325 1 tab PO Q4-6H PRN #10 tab 10/14/18 mg tablet (Benavides) hydrocodone 5 mg-acetaminophen 325 1 tab PO Q4H PRN #10 tab 04/27/20 mg tablet (Benavides) oxycodone 5 mg tablet 5 mg PO Q4-6H PRN #20 tab 02/08/21 Allergies Allergy/AdvReac Type Severity Reaction Status Date / Time No Known Drug Allergies Allergy Verified 04/27/20 13:47 Review of Systems Review of Systems Narrative: GENERAL: See HPI HEENT: Denies sinus pain, ear pain, sore throat, difficulty swallowing, dizziness. RESPIRATORY: Denies dyspnea, cough, wheezing, hemoptysis, sputum. CARDIOVASCULAR: Denies chest pain, palpitations, orthopnea, edema, GASTROINTESTINAL: See HPI : See HPI MUSCULOSKELETAL: denies weakness, joint pain, or bony pain SKIN: Denies rash, skin lesions, or other NEUROLOGIC: Denies weakness, headache, numbness, change in speech, confusion, seizures, incoordination. PSYCHIATRIC: No concerning psychosocial issues. 12 point review of systems is negative except for those stated above Patient History Medical History Age-related osteoporosis with current pathol fracture of vertebra Alcoholism Compression fracture (10/14/18) Compression fracture of L4 vertebra (04/2020) Diabetes Diabetic neuropathy Lumbosacral radiculopathy at L5 Neuropathy Surgical History History of lumbar fusion S/P epidural steroid injection Social History marital status: household members: none Smoking Status: Former smoker alcohol intake: former Smoking Status: Former smoker Substance Use Type: does not use Exam Narrative Exam Narrative: GENERAL: [65] year old patient appears stated age. Well-developed patient, in mild distress. Complaining of abdominal pain, rubbing his upper abdomen HEAD: Atraumatic. Normocephalic. EYES: Pupils equal round and reactive. Extraocular motions intact. No scleral icterus. No injection or drainage. ENT: Nose without bleeding, purulent drainage. Throat without erythema, tonsillar hypertrophy or exudate. Airway patent. NECK: Trachea midline. Non tender CARDIOVASCULAR: Regular rate and rhythm without murmurs, gallops, or rubs. RESPIRATORY: Clear to auscultation. Breath sounds equal bilaterally. No wheezes, rales, or rhonchi. GASTROINTESTINAL: Abdomen soft, tender in the right upper quadrant, bowel sounds present in all 4 quadrants. Clear yellow drainage in biliary drain. EXTREMITIES: No edema or joint tenderness. BACK: Nontender without deformity or crepitance. No flank tenderness. NEURO: AOx3. SKIN: No rash or erythema of visible areas Initial Vital Signs Initial Vital Signs: Vital Signs Pulse Rate 83 02/07/21 21:04 Blood Pressure 177/81 H 02/07/21 21:04 Pulse Oximetry 95 02/07/21 21:04 Course Orders Ordered: ED Orders 02/07/21 20:58 XR chest 1V Stat RT Consult Eval and Treat Now 02/07/21 21:04 EKG-12 Lead Stat 02/07/21 21:17 Complete Blood Count AUTO DIFF Stat Comprehensive Metabolic Panel Stat Lactate (Lactic Acid) Stat Lipase Stat Procalcitonin Stat Troponin & CK Cardiac Panel Stat 02/07/21 21:19 CT abdomen pelvis w con Stat 02/07/21 21:35 Blood Culture Stat 02/07/21 22:03 Ictotest Urine Stat Urine Culture Stat Urine Microscopic Stat 02/07/21 22:50 Urine Microscopic Stat 02/08/21 02:23 Body Fluid Culture Stat 02/08/21 02:24 COVID19 - ADMIT (DOSIER OPERATOR swab/PCR) Stat Discontinued Medications Hydromorphone HCl (Hydromorphone 1 Mg Inj) 1 mg IV NOW ONE Stop: 02/07/21 23:55 Last Admin: 02/08/21 00:08 Dose: 1 mg Documented by: MANUEL Ondansetron HCl (Ondansetron 4 Mg/2 Ml Inj) 4 mg IV NOW ONE Stop: 02/07/21 23:55 Last Admin: 02/08/21 00:08 Dose: 4 mg Documented by: MANUEL Ondansetron HCl (Ondansetron 4 Mg Odt Prepack) 1 bottle MISC SEEINSTR ONE Stop: 02/08/21 02:43 Oxycodone/Acetaminophen (Oxycodone/Apap 5/325 Prepack) 1 bottle MISC SEEINSTR ONE Stop: 02/08/21 02:43 Reevaluation(s) Reevaluation #1: Patient feeling much better after above-stated therapies. Pain is well controlled Consultations Consultation #1: call to infantry weapons crewmember general surgery ([facility]). Upon reviewing the patient's history and physical as well as labs and imaging there was recommendation to culture the biliary fluid and discharged with encouragement to follow-up with surgical team at [facility] and typical return precautions. Consultation #2: discussed with infantry weapons crewmember Gen Surg at [facility] ([facility]) and we have reviewed history, physical, labs and imaging. He sure the opinion that the workup is complete and there is no indication for further or different imaging or labs. He recommends treating the patient's symptoms, discharge, giving return precautions and states that his clinical reach out to the patient later today to arrange for follow-up Vital Signs Vital signs: Vital Signs - 8 hr 02/07/21 21:04 02/07/21 21:05 02/07/21 21:06 Temperature 100.4 F H Pulse Rate 83 84 86 Respiratory Rate 16 Blood Pressure 177/81 H 177/51 H Pulse Oximetry 95 95 93 02/07/21 21:30 02/07/21 22:02 02/07/21 22:03 Temperature Pulse Rate 85 84 84 Respiratory Rate Blood Pressure 175/78 H Pulse Oximetry 95 95 96 02/07/21 22:30 02/07/21 23:00 02/07/21 23:30 Temperature Pulse Rate 83 83 82 Respiratory Rate Blood Pressure 166/70 H 172/74 H 155/68 H Pulse Oximetry 95 94 95 02/08/21 00:00 02/08/21 00:30 02/08/21 00:31 Temperature Pulse Rate 81 77 77 Respiratory Rate Blood Pressure 159/67 H 135/58 L Pulse Oximetry 95 93 92 02/08/21 01:00 02/08/21 01:30 02/08/21 02:00 Temperature Pulse Rate 74 73 71 Respiratory Rate Blood Pressure 118/56 L 109/58 L 104/59 L Pulse Oximetry 93 95 95 02/08/21 02:30 Temperature Pulse Rate 71 Respiratory Rate Blood Pressure 110/57 L Pulse Oximetry 96 MDM - Abdominal Pain Lab Data Result diagrams: 02/07/21 21:17 02/07/21 21:17 Labs: Lab Results 02/07/21 02/07/21 02/07/21 Range/Units 21:17 21:17 21:17 WBC 11.1 H (4.5-11.0) X10^3/uL RBC 4.35 L (4.5-5.9) X10^6/uL Hgb 12.2 L (13.5-17.5) g/dL Hct 36.6 L (41-53) % MCV 84.1 (80-100) fL MCH 28.0 (26-34) PG MCHC 33.3 (30-36) % RDW 14.8 (11.6-14.8) % Plt Count 140 L (150-400) X10^3/uL Neut % (Auto) 72.6 (50-75) % Lymph % (Auto) 10.7 L (25-40) % [place] % (Auto) 11.2 (3-14) % Eos % (Auto) 4.9 H (2-4) % Baso % (Auto) 0.6 (0-2) % Neut # (Auto) 8000 H (1965-0249) /uL Lymph # (Auto) 1200 (8586-0500) /uL [place] # (Auto) 1200 H (0-900) /uL Eos # (Auto) 500 H (0-450) /uL Baso # (Auto) 100 (0-100) /uL Sodium 135 L (137-145) mmol/L Potassium 4.6 (3.4-5.1) mmol/L Chloride 101 (98-107) mmol/L Carbon Dioxide 25 (22-32) mmol/L BUN 27 H (9-20) mg/dL Creatinine 1.10 (0.66-1.25) mg/dL Estimated GFR > 60.0 (>60) mL/min BUN/Creatinine Ratio 24.5 H (6-22) Glucose 226 H (80-110) mg/dL Lactate 1.7 (0.7-2.1) mmol/L Calcium 9.7 (8.4-10.2) mg/dL Total Bilirubin 0.9 (0.2-1.3) mg/dL AST 42 (17-59) IU/L ALT 33 (<50) IU/L Alkaline Phosphatase 152 H (38-126) U/L Total Creatine Kinase 41 L (55-170) U/L CK-MB (CK-2) TNP CK-MB (CK-2) Rel Index TNP Troponin I < 0.012 (0.01-0.034) ng/mL Total Protein 8.1 (6.3-8.2) g/dL Albumin 4.5 (3.5-5.0) g/dL Globulin 3.6 (1.7-4.1) g/dL Albumin/Globulin Ratio 1.3 (1.0-2.8) Lipase 100 (23-300) U/L Procalcitonin 0.05 (<0.5) ng/mL Ur Bilirubin Confirm (Negative) Urine RBC (0-5/HPF) Urine WBC (0-5/HPF) Ur Squamous Epith Cells (0-5/HPF) Urine Bacteria (None) Hyaline Casts (None) Ur Culture Indicated? 02/07/21 02/07/21 Range/Units 22:03 22:50 WBC (4.5-11.0) X10^3/uL RBC (4.5-5.9) X10^6/uL Hgb (13.5-17.5) g/dL Hct (41-53) % MCV (80-100) fL MCH (26-34) PG MCHC (30-36) % RDW (11.6-14.8) % Plt Count (150-400) X10^3/uL Neut % (Auto) (50-75) % Lymph % (Auto) (25-40) % [place] % (Auto) (3-14) % Eos % (Auto) (2-4) % Baso % (Auto) (0-2) % Neut # (Auto) (8867-2999) /uL Lymph # (Auto) (3007-5667) /uL [place] # (Auto) (0-900) /uL Eos # (Auto) (0-450) /uL Baso # (Auto) (0-100) /uL Sodium (137-145) mmol/L Potassium (3.4-5.1) mmol/L Chloride (98-107) mmol/L Carbon Dioxide (22-32) mmol/L BUN (9-20) mg/dL Creatinine (0.66-1.25) mg/dL Estimated GFR (>60) mL/min BUN/Creatinine Ratio (6-22) Glucose (80-110) mg/dL Lactate (0.7-2.1) mmol/L Calcium (8.4-10.2) mg/dL Total Bilirubin (0.2-1.3) mg/dL AST (17-59) IU/L ALT (<50) IU/L Alkaline Phosphatase (38-126) U/L Total Creatine Kinase (55-170) U/L CK-MB (CK-2) CK-MB (CK-2) Rel Index Troponin I (0.01-0.034) ng/mL Total Protein (6.3-8.2) g/dL Albumin (3.5-5.0) g/dL Globulin (1.7-4.1) g/dL Albumin/Globulin Ratio (1.0-2.8) Lipase (23-300) U/L Procalcitonin (<0.5) ng/mL Ur Bilirubin Confirm Negative (Negative) Urine RBC None seen 1-5/hpf (0-5/HPF) Urine WBC None seen None seen (0-5/HPF) Ur Squamous Epith Cells 0-1 /hpf (0-5/HPF) Urine Bacteria Many (>30) H None seen (None) Hyaline Casts 1-5/lpf (None) Ur Culture Indicated? Specimen cultured Cult not indicated Point of care testing: Urine Dip Bedside Urine Glucose 100 mg/dl Bedside Urine Bilirubin - Negative Bedside Urine Ketone - Negative Urine Specific [place] 1.015 Bedside Urine Occult Blood +/- Bedside Urine pH 6.0 Bedside Urine Protein + 30 Bedside Urine Urobilinogen - Negative Bedside Urine Nitrite - Negative Bedside Urine Leukocytes + [address] scan - abdomen/pelvis: Radiologist's Impression: Kin Marie??65??M??1955 ? Allergy/Adv: No Known Drug Allergies Close Abdomen/Pelvis CT (Signed) Quintin Collins - 02/07/21 Chest X-Ray (Signed) Quintin Collins - 02/07/21 Injection Lumbar, Sacrum (Signed) Mekhi Sharma - 07/20/20 Lumbar Spine X-Ray (Signed) Rebecca Trujillo - 05/30/20 Lumbar Spine X-Ray (Signed) Martinez Espinal - 04/27/20 Injection Lumbar, Sacrum (Signed) Vazquez Zarate - 04/06/19 Hip X-Ray (Signed) David Alvarenga - 10/13/[address] (Signed) Rebecca Trujillo - 10/13/[address] (Signed) Rebecca Trujillo - 10/13/[address] (Signed) Rebecca Trujillo - 10/13/18 [place] [address] CT Scan Report Signed Patient: Kin Marie MR#: [id number] : 1955 Acct:[id number] Age/Sex: 65 / M Date of Service: 02/07/21 Loc: ED Accession Number: [id number] ?? Procedure: CT abdomen pelvis w con Ordering Provider: Dayne Rocha D.O. PROCEDURE:? CT ABDOMEN PELVIS W CON ? INDICATIONS:? septic, abdominal pain, recent GB surgery ? TECHNIQUE:? After the administration of intravenous contrast, axial sections acquired from the lung bases to the pubic symphysis.? Coronal and sagittal reformats were performed.? For radiation dose reduction, the following was used:? automated exposure control, adjustment of mA and/or kV according to patient size.? ? COMPARISON:? [facility], CT, CT ABDOMEN PELVIS WITH CONTRAST, 01/08/2021, 13:33.? [facility], CR, XR CHOLANGIOGRAM EXISTING CATHETER, 01/12/2021, 10:46. ? FINDINGS:? Image quality:? Excellent.? ? Lung bases:? Minimal bibasilar atelectasis.. Heart:? Coronary artery calcifications. ? ABDOMEN: Liver:? Unremarkable.? ? Gallbladder:? A cholecystostomy tube is in place.? ? Biliary ducts:? Unremarkable.? ? Pancreas:? Unremarkable.? ? Spleen:? Unremarkable.? ? Adrenal Glands:? Unremarkable.? ? Kidneys and Ureters:? Unremarkable.? ? ? Stomach and Bowel:? Stomach, small bowel loops, and colon are unremarkable.? Peritoneum:? Minimal perihepatic fluid.? No free air or abscess cavity. ? Ventral Wall: ? No hernias.? Abdominal Nodes:? No retroperitoneal or mesenteric adenopathy by size criteria.? Vessels:? Aorta and inferior vena cava are normal in size.? ? PELVIS: Pelvic Organs:? Unremarkable.? ? Bladder:? Distended without thickened wall..? ? Pelvic Nodes: No enlarged lymph nodes.? Miscellaneous: No hernias are seen. ? ? ? Bones:? Remote percutaneous cement fixation of L4 and L5 vertebral bodies.? No acute compression fractures.? No lytic or blastic bony lesions. ? ? IMPRESSION:? ? 1. Cholecystostomy tube. ? 2. Minimal bibasilar atelectasis. ? 3. Moderately large fecal debris. ? 4. Distended bladder.? ? ? Dictated by: Quintin Collins M.D. on 02/07/2021 at 22:22 ? ? Approved by: Quintin Collins M.D. on 02/07/2021 at 22:26 ? MDM Narrative Medical decision making narrative: Multiple etiologies for patient's symptoms considered including: [Postsurgical pneumonia versus UTI versus bowel obstruction versus colitis versus biliary problem versus other Patient's symptoms improved over duration of stay with above-stated therapies. Findings and discharge diagnosis discussed with patient/family followed by verbalization of understanding Return precautions discussed with patient/family whom verbalize understanding. Critical Care Time Critical Care Time Attestation: The high probability of a clinically significant, sudden or life threatening deterioration of the [GI] system(s) required my full and direct attention, intervention and personal management. The aggregate critical care time was [30] minutes. This time is in addition to time spent performing reported procedures but includes the following: [x] Data Review and interpretation [x] Patient assessment and monitoring of vital signs [x] Documentation x Medication orders and management Discharge Plan Departure Patient Disposition: Home Clinical Impression: Abdominal pain, acute, right upper quadrant Instructions: DI for Abdominal Pain-Adult Activity Restrictions/Additional Instructions: *You have been diagnosed with [acute right upper quadrant pain. Your physical exam, labs, response to medications and imaging are very reassuring. As I discussed with you I have consulted both our surgeon and the on-call surgeon at [facility] who sure the opinion that labs and imaging are reassuring and discharge is appropriate *What to do: *Please continue to take your regular medications as directed. [x ] New medication prescriptions sent to your pharmacy: [[facility] in [place] ] [ ] New medication written as a paper prescription [ ] No new medications given *Please follow up with your surgical provider in 2-3 days, call for an appointment. Let them know you were seen in the Emergency Department and that we ask that you be seen in follow up. We will electronically transmit a record of today's note if your PCP is in our system *Return to Emergency Department if you should have any new, worsening or concerning symptoms, such as [fever greater than 101 F, shaking chills, worsening pain, persistent vomiting or other bothersome symptoms] Prescriptions: New oxycodone 5 mg tablet 5 mg PO Q4-6H PRN (Reason: pain) Qty: 20 RF: 0 No Action hydrocodone-acetaminophen [Benavides] 5-325 mg tablet 1 tab PO Q4H PRN (Reason: pain) Qty: 10 RF: 0 hydrocodone-acetaminophen [Benavides] 5-325 mg tablet 1 tab PO Q4-6H PRN (Reason: pain) Qty: 10 RF: 0 Referrals: Jovanny Mccann FNP-C [Primary Care Provider] -
[2021-02-07 21:24] LABS: Add Manual Diff / Slide Review NO; Basophils Absolute Auto 100 /uL (0-100); Basophils Percent Auto 0.6 % (0-2); Eosinophils Absolute Auto 500 /uL (0-450); Eosinophils Percent Auto 4.9 % (2-4); Hematocrit 36.6 % (41-53); Hemoglobin 12.2 g/dL (13.5-17.5); Lymphocytes Absolute Auto 1200 /uL (1100-4500); Lymphocytes Percent Auto 10.7 % (25-40); Mean Corpuscular HGB Conc 33.3 % (30-36); Mean Corpuscular Volume 84.1 fL (80-100); Monocytes Absolute Auto 1200 /uL (0-900); Monocytes Percent Auto 11.2 % (3-14); Neutrophils Absolute Auto 8000 /uL (1500-7000); Neutrophils Percent Auto 72.6 % (50-75); Platelet Count 140 X10^3/uL (150-400); Red Blood Cell Count 4.35 X10^6/uL (4.5-5.9); Red Cell Distribution Width 14.8 % (11.6-14.8); White Blood Cell Count 11.1 X10^3/uL (4.5-11.0)
[2021-02-07 21:40] LABS: Lactate (Lactic Acid) 1.7 mmol/L (0.7-2.1)
[2021-02-07 21:41] LABS: Alanine Aminotransferase 33 IU/L (<50); Albumin 4.5 g/dL (3.5-5.0); Albumin Globulin Ratio 1.3 (1.0-2.8); Alkaline Phosphatase 152 U/L (38-126); Aspartate Aminotransferase 42 IU/L (17-59); BUN Creatinine Ratio 24.5 (6-22); Bilirubin Total 0.9 mg/dL (0.2-1.3); Blood Urea Nitrogen 27 mg/dL (9-20); Calcium 9.7 mg/dL (8.4-10.2); Carbon Dioxide 25 mmol/L (22-32); Chloride 101 mmol/L (98-107); Creatine Kinase 41 U/L (55-170); Estimated Glomerular Filt Rate > 60.0 mL/min (>60); Globulin 3.6 g/dL (1.7-4.1); Glucose 226 mg/dL (80-110); HEMOLYSIS < 15 (0-50); Lipase 100 U/L (23-300); Potassium 4.6 mmol/L (3.4-5.1); Sodium 135 mmol/L (137-145); Total Protein 8.1 g/dL (6.3-8.2)
[2021-02-07 21:53] LABS: Troponin I < 0.012 ng/mL (0.01-0.034)
[2021-02-07 21:57] LABS: Procalcitonin 0.05 ng/mL (<0.5)
[2021-02-07 22:56] LABS: Bacteria Urine None Seen; WBC Urine None Seen (0-5/HPF)
[2021-02-07 23:09] LABS: Culture Indicated Urine Cult Not Indicated; Hyaline Casts Urine 1-5/LPF; RBC Urine 1-5/HPF (0-5/HPF); Squamous Epithelial Cell Urine 0-1 /HPF (0-5/HPF)
[2021-02-08] VITALS (11 sets, daily range): BP systolic 104–159; BP diastolic 54–67; PULSE 69–81; O2SAT 92–97
[2021-02-08] MEDS: HYDROMORPHONE 1 MG INJ IV (00:08)
[2021-02-08] MEDS: ONDANSETRON 4 MG/2 ML INJ IV (00:08)
[2021-02-08] MEDS: ONDANSETRON 4 MG ODT PREPACK 1 BOTTLE MISC (03:20)
[2021-02-08] MEDS: OXYCODONE/APAP 5/325 PREPACK 1 BOTTLE MISC (03:21)
== END 2021-02-08 04:26 | disposition home or self-care (01) ==
PROVIDERS: Emergency Provider Emergency Medicine; PCP Nurse Practitioner
DX: R10.11 Right upper quadrant pain (principal); R50.9 Fever, unspecified
CPT/HCPCS: 36415; 71045; 74177; 80053; 81003; 81015; 82550; 83605; 83690; 84145; 84484; 85025; 87040; 87070; 87075; 87077; 87086; 87186; 87205; 93005; 96374; 96375; 99284; 99291; J1170; J2405; Q9967

== ENCOUNTER → 2021-02-10 08:59 | Outpatient (ROUT) | payer MEDICARE, OTHER, SELFPAY ==
[2021-02-10 09:02] LABS: Bacteria Urine None Seen; RBC Urine None Seen (0-5/HPF); WBC Urine None Seen (0-5/HPF)
[2021-02-10 09:39] LABS: Appearance Urine UA CLEAR; Bilirubin Urine UA NEGATIVE (NEGATIVE); Color Urine UA YELLOW; Glucose Urine UA NEGATIVE (Negative); Ketones Urine UA NEGATIVE (NEGATIVE); Leukocyte Esterase Urine UA NEGATIVE (NEGATIVE); Nitrite Urine UA NEGATIVE (Negative); Occult Blood Urine UA NEGATIVE (Negative); Protein Urine UA NEGATIVE (Negative); Urobilinogen Urine UA 0.2 E.U./dL (0.2); pH Urine UA 6.5 (4.5-8.0)
[2021-02-10 10:03] LABS: Culture Indicated Urine Cult Not Indicated; Urine Comments Microscopic Normal
== END ==
PROVIDERS: PCP Nurse Practitioner; Visit Provider Nurse Practitioner
DX: Z48.815 Encounter for surgical aftercare following surgery on the digestive system (principal); G62.9 Polyneuropathy, unspecified
CPT/HCPCS: 81001

== ENCOUNTER 2021-04-09 11:36 | Emergency (ER) | payer MEDICARE, SELFPAY ==
[2021-04-09] VITALS (12 sets, daily range): BP systolic 126–160; BP diastolic 60–78; PULSE 63–72; RESP 14–38; TEMP 36.6; O2SAT 92–99; BMI 33.3
[2021-04-09 11:58] LABS: Add Manual Diff / Slide Review NO; Basophils Absolute Auto 0 /uL (0-100); Basophils Percent Auto 0.4 % (0-2); Eosinophils Absolute Auto 200 /uL (0-450); Eosinophils Percent Auto 2.2 % (2-4); Hematocrit 33.9 % (41-53); Hemoglobin 11.4 g/dL (13.5-17.5); Lymphocytes Absolute Auto 1600 /uL (1100-4500); Lymphocytes Percent Auto 14.8 % (25-40); Mean Corpuscular HGB Conc 33.5 % (30-36); Mean Corpuscular Hemoglobin 27.7 PG (26-34); Mean Corpuscular Volume 82.6 fL (80-100); Monocytes Absolute Auto 600 /uL (0-900); Monocytes Percent Auto 5.9 % (3-14); Neutrophils Absolute Auto 8100 /uL (1500-7000); Neutrophils Percent Auto 76.7 % (50-75); Platelet Count 140 X10^3/uL (150-400); Red Blood Cell Count 4.11 X10^6/uL (4.5-5.9); Red Cell Distribution Width 14.7 % (11.6-14.8); White Blood Cell Count 10.6 X10^3/uL (4.5-11.0)
[2021-04-09 12:03] LABS: Lactate (Lactic Acid) 1.8 mmol/L (0.7-2.1)
[2021-04-09 12:04] LABS: Alanine Aminotransferase 18 IU/L (<50); Albumin 4.1 g/dL (3.5-5.0); Albumin Globulin Ratio 1.3 (1.0-2.8); Alkaline Phosphatase 93 U/L (38-126); Aspartate Aminotransferase 21 IU/L (17-59); BUN Creatinine Ratio 17.3 (6-22); Bilirubin Total 0.6 mg/dL (0.2-1.3); Blood Urea Nitrogen 33 mg/dL (9-20); Calcium 9.3 mg/dL (8.4-10.2); Carbon Dioxide 21 mmol/L (22-32); Chloride 101 mmol/L (98-107); Creatine Kinase 28 U/L (55-170); Estimated Glomerular Filt Rate 35.4 mL/min (>60); Globulin 3.2 g/dL (1.7-4.1); Glucose 309 mg/dL (80-110); HEMOLYSIS < 15 (0-50); Potassium 4.6 mmol/L (3.4-5.1); Sodium 134 mmol/L (137-145); Total Protein 7.3 g/dL (6.3-8.2)
[2021-04-09] MEDS: SODIUM CHLORIDE 0.9% 1,000 ML 1000 ML IV (12:04)
[2021-04-09 12:16] LABS: Troponin I < 0.012 ng/mL (0.01-0.034)
[2021-04-09 12:21] LABS: Procalcitonin 0.05 ng/mL (<0.5)
--- NOTE | 2021-04-09 12:43 | ED.ABDPAIN ---
HPI - Abdominal Pain General Chief Complaint: Abdominal Pain Stated Complaint: Hypotensive Time Seen by Provider: 04/09/21 11:43 History of Present Illness HPI narrative: 65-year-old male nonsmoker with history of TIA, type 2 diabetes, hepatitis-C, hepatic encephalopathy, cirrhosis, hypertension presents from a local rehab facility for a low blood pressure this morning. He has had a rather complex recent medical history which seemed to stem from a complicated gallbladder surgery repaired at an outside facility. Patient had a laparoscopic subtotal cholecystectomy with drain on February 23 and a repeat visit for completion of the surgery on March 23. He presented to [facility] on 03 28 after the patient had been feeling dizzy, weak and lightheaded and had fallen, resulting in a 2-3 hour time frame in which he could not get off the ground. Patient reports that he was discharged from [facility] on Friday to the local facility where he has been since. By his arrival he is at his baseline and denies dizziness, weakness or lightheadedness. He has had no fever or chills and denies chest pain or shortness of breath. His vitals are stable with a blood pressure in the 120s. Related Data Previous Rx's Medication Instructions Recorded hydrocodone 5 mg-acetaminophen 325 1 tab PO Q4-6H PRN #10 tab 10/14/18 mg tablet ([place]) hydrocodone 5 mg-acetaminophen 325 1 tab PO Q4H PRN #10 tab 04/27/20 mg tablet ([place]) oxycodone 5 mg tablet 5 mg PO Q4-6H PRN #20 tab 02/08/21 Allergies Allergy/AdvReac Type Severity Reaction Status Date / Time No Known Drug Allergies Allergy Verified 04/27/20 13:47 Review of Systems Review of Systems Narrative: GENERAL: Denies chills, fatigue, malaise, fever, sweats. HEENT: Denies sinus pain, ear pain, sore throat, difficulty swallowing, dizziness. RESPIRATORY: Denies dyspnea, cough, wheezing, hemoptysis, sputum. CARDIOVASCULAR: Denies chest pain, palpitations, orthopnea, edema, GASTROINTESTINAL: Denies nausea, vomiting, abdominal pain, diarrhea, constipation, melena. : Denies dysuria, frequency, incontinence, hematuria, urinary retention. MUSCULOSKELETAL: denies weakness, joint pain, or bony pain SKIN: Denies rash, skin lesions, or other NEUROLOGIC: Denies weakness, headache, numbness, change in speech, confusion, seizures, incoordination. PSYCHIATRIC: No concerning psychosocial issues. 12 point review of systems is negative except for those stated above Patient History Medical History Age-related osteoporosis with current pathol fracture of vertebra Alcoholism Compression fracture (10/14/18) Compression fracture of L4 vertebra (04/2020) Diabetes Diabetic neuropathy Lumbosacral radiculopathy at L5 Neuropathy Surgical History History of lumbar fusion S/P epidural steroid injection Social History marital status: household members: none Smoking Status: Former smoker alcohol intake: former Smoking Status: Former smoker Substance Use Type: does not use Exam Narrative Exam Narrative: GENERAL: [65 year old patient appears stated age. Well-developed patient, in mild distress. GCS 14 (confusion) very poor historian at baseline HEAD: Atraumatic. Normocephalic. EYES: Pupils equal round and reactive. Extraocular motions intact. No scleral icterus. No injection or drainage. ENT: Nose without bleeding, purulent drainage. Throat without erythema, tonsillar hypertrophy or exudate. Airway patent. NECK: Trachea midline. Non tender CARDIOVASCULAR: Regular rate and rhythm without murmurs, gallops, or rubs. RESPIRATORY: Clear to auscultation. Breath sounds equal bilaterally. No wheezes, rales, or rhonchi. GASTROINTESTINAL: Abdomen soft, non-tender, nondistended. EXTREMITIES: No edema or joint tenderness. BACK: Nontender without deformity or crepitance. No flank tenderness. NEURO: AOx3. SKIN: No rash or erythema of visible areas Initial Vital Signs Initial Vital Signs: Vital Signs Temperature 97.8 F 04/09/21 11:43 Pulse Rate 66 04/09/21 11:43 Respiratory Rate 16 04/09/21 11:43 Blood Pressure 133/60 04/09/21 11:43 Pulse Oximetry 97 04/09/21 11:43 Course Orders Ordered: ED Orders 04/09/21 11:40 Complete Blood Count AUTO DIFF Stat Comprehensive Metabolic Panel Stat Lactate (Lactic Acid) Stat Procalcitonin Stat Troponin & CK Cardiac Panel Stat 04/09/21 11:52 EKG-12 Lead Stat 04/09/21 12:45 CT abdomen pelvis w con Stat 04/09/21 13:11 Blood Culture Stat Discontinued Medications Sodium Chloride (Normal Saline 0.9%) 1,000 mls @ 1,000 mls/hr IV BOLUS ONE Stop: 04/09/21 12:50 Last Infusion: 04/09/21 13:09 Dose: 0 mls/hr Documented by: Admin: 04/09/21 12:04 Dose: 1,000 mls/hr Documented by: ANA Vital Signs Vital signs: Vital Signs - 8 hr 04/09/21 11:43 04/09/21 11:44 04/09/21 12:00 Temperature 97.8 F Pulse Rate 66 67 67 Respiratory Rate 16 20 16 Blood Pressure 133/60 129/63 Pulse Oximetry 97 97 95 04/09/21 12:30 04/09/21 13:11 04/09/21 13:30 Temperature Pulse Rate 64 67 63 Respiratory Rate 14 18 16 Blood Pressure 147/70 H Pulse Oximetry 96 99 98 04/09/21 13:50 04/09/21 14:00 04/09/21 14:01 Temperature Pulse Rate 71 72 68 Respiratory Rate 21 38 H 23 Blood Pressure 134/78 126/64 Pulse Oximetry 99 99 92 04/09/21 14:24 04/09/21 14:30 04/09/21 15:00 Temperature Pulse Rate 69 64 64 Respiratory Rate 16 15 Blood Pressure 160/69 H 143/75 H 138/65 Pulse Oximetry 98 98 97 MDM - Abdominal Pain Lab Data Result diagrams: 04/09/21 11:40 04/09/21 11:40 Labs: Lab Results 04/09/21 04/09/21 04/09/21 Range/Units 11:40 11:40 11:40 WBC 10.6 (4.5-11.0) X10^3/uL RBC 4.11 L (4.5-5.9) X10^6/uL Hgb 11.4 L (13.5-17.5) g/dL Hct 33.9 L (41-53) % MCV 82.6 (80-100) fL MCH 27.7 (26-34) PG MCHC 33.5 (30-36) % RDW 14.7 (11.6-14.8) % Plt Count 140 L (150-400) X10^3/uL Neut % (Auto) 76.7 H (50-75) % Lymph % (Auto) 14.8 L (25-40) % [place] % (Auto) 5.9 (3-14) % Eos % (Auto) 2.2 (2-4) % Baso % (Auto) 0.4 (0-2) % Neut # (Auto) 8100 H (5420-1305) /uL Lymph # (Auto) 1600 (3580-0578) /uL [place] # (Auto) 600 (0-900) /uL Eos # (Auto) 200 (0-450) /uL Baso # (Auto) 0 (0-100) /uL Sodium 134 L (137-145) mmol/L Potassium 4.6 (3.4-5.1) mmol/L Chloride 101 (98-107) mmol/L Carbon Dioxide 21 L (22-32) mmol/L BUN 33 H (9-20) mg/dL Creatinine 1.91 H (0.66-1.25) mg/dL Estimated GFR 35.4 L (>60) mL/min BUN/Creatinine Ratio 17.3 (6-22) Glucose 309 H (80-110) mg/dL Lactate 1.8 (0.7-2.1) mmol/L Calcium 9.3 (8.4-10.2) mg/dL Total Bilirubin 0.6 (0.2-1.3) mg/dL AST 21 (17-59) IU/L ALT 18 (<50) IU/L Alkaline Phosphatase 93 (38-126) U/L Total Creatine Kinase 28 L (55-170) U/L CK-MB (CK-2) TNP CK-MB (CK-2) Rel Index TNP Troponin I < 0.012 (0.01-0.034) ng/mL Total Protein 7.3 (6.3-8.2) g/dL Albumin 4.1 (3.5-5.0) g/dL Globulin 3.2 (1.7-4.1) g/dL Albumin/Globulin Ratio 1.3 (1.0-2.8) Procalcitonin 0.05 (<0.5) ng/mL Point of care testing: Urine Dip Bedside Urine Glucose Negative Bedside Urine Bilirubin - Negative Bedside Urine Ketone - Negative Urine Specific [place] 1.015 Bedside Urine Occult Blood - Negative Bedside Urine pH 5.5 Bedside Urine Protein - Negative Bedside Urine Urobilinogen - Negative Bedside Urine Nitrite - Negative Bedside Urine Leukocytes - Negative Esterase Imaging Data CT scan - abdomen/pelvis: Radiologist's Impression: [address] [address] [address] Scan Report Signed Patient: Kin Marie MR#: [id number] : 1955 Acct:[id number] Age/Sex: 65 / M Date of Service: 04/09/21 Loc: ED Accession Number: [id number] ?? Procedure: CT abdomen pelvis w con Ordering Provider: Dayne Rocha D.O. PROCEDURE:? CT ABDOMEN PELVIS W CON ? INDICATIONS:? hypotensive, recent abdominal surgery, pain in RLQ ? TECHNIQUE:? After the administration of oral and IV contrast, axial sections were acquired from the lung bases to the pubic symphysis.? Coronal and sagittal reformats were performed.? For radiation dose reduction, the following was used:? automated exposure control, adjustment of mA and/or kV according to patient size. ? COMPARISON:? [facility], CT, CT ABDOMEN PELVIS W CON, 02/07/2021, 21:45. ? FINDINGS:? Image quality:? Excellent.? ? Lung bases:? Bibasilar atelectasis.? ? Heart:? Mild cardiomegaly with suggestion of mitral valve prosthesis. Esophageal varices are noted. ? ? ABDOMEN: Liver:? Decreased attenuation of the liver, compatible with hepatic steatosis.? The liver is enlarged, measuring 23 cm in length.? Nodular contour of the liver, compatible with cirrhosis.? Gallbladder:? The gallbladder appears contracted.? ? Biliary ducts:? Unremarkable.? ? Pancreas:? Unremarkable.? ? Spleen:? Normal contour.? The spleen is enlarged, measuring 16.5 cm in length.? ? Adrenal Glands:? Unremarkable.? ? Kidneys and Ureters:? Unremarkable.? ? ? Stomach and Bowel:? No evidence of intestinal obstruction.? A few scattered sigmoid diverticuli are seen.? The appendix is not well seen.? Peritoneum:? No abnormal intraperitoneal fluid.? No free air.? ? Ventral Wall: ? Trace fat containing periumbilical hernia with surrounding infiltrative change. Abdominal Nodes:? No retroperitoneal or mesenteric adenopathy by size criteria.? Vessels:? Aorta and inferior vena cava are normal in size.? 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 ? PELVIS: Pelvic Organs:? Prominence of the prostate measuring 4.5 cm in transverse dimension.? ? Bladder:? Unremarkable.? ? Pelvic Nodes: No enlarged lymph nodes.? Miscellaneous: No inguinal hernias are seen. ? ? Linear infiltrative change in the right ventral subcutaneous fat, compatible with prior cholecystostomy tract. ? Bones:? Multifocal degenerative change.? T11 and L3 superior endplate deformities, likely reflecting Schmorl nodes.? Redemonstrated superior compression deformities of L1 and L4-5, unchanged. ? ? IMPRESSION:? ? 1. No acute intra-abdominal/pelvic abnormality.? 2. Hepatosplenomegaly. 3. Cirrhotic changes of the liver. 4. Esophageal and gastrosplenic varices.? ? Dictated by: Lemuel Garcia M.D. on 04/09/2021 at 13:05 ? ? Approved by: Lemuel Garcia M.D. on 04/09/2021 at 13:26 ? Discharge Plan Departure Patient Disposition: Home Clinical Impression: Acute hypotension Instructions: DI for Orthostatic Hypotension Activity Restrictions/Additional Instructions: *You have been diagnosed with [episode of hypotension, no indication of sepsis. History, physical exam and labs are very reassuring. Your CT scan showed no significant findings. *What to do: *Please continue to take your regular medications as directed. [ ] New medication prescriptions sent to your pharmacy: [ ] [ ] New medication written as a paper prescription [ ] No new medications given *Please follow up with your primary care provider in 2-3 days, call for an appointment. Let them know you were seen in the Emergency Department and that we ask that you be seen in follow up. We will electronically transmit a record of today's note if your PCP is in our system *If you do not have a primary care provider please contact the [facility] Resource line at [phone]. They will ask some questions about your medical history and help get you set up with a doctor in the community. *Return to Emergency Department if you should have any new, worsening or concerning symptoms, such as [fever greater than 101 F, shaking chills, worsening pain, persistent vomiting or other bothersome symptoms] Prescriptions: No Action hydrocodone-acetaminophen [[place]] 5-325 mg tablet 1 tab PO Q4H PRN (Reason: pain) Qty: 10 RF: 0 oxycodone 5 mg tablet 5 mg PO Q4-6H PRN (Reason: pain) Qty: 20 RF: 0 hydrocodone-acetaminophen [[place]] 5-325 mg tablet 1 tab PO Q4-6H PRN (Reason: pain) Qty: 10 RF: 0 Referrals: Jovanny Mccann FNP-C [Primary Care Provider] -
--- NOTE | 2021-04-09 12:45 | DI.CT.S_ITS ---
PROCEDURE: CT ABDOMEN PELVIS W CON INDICATIONS: hypotensive, recent abdominal surgery, pain in RLQ TECHNIQUE: After the administration of oral and IV contrast, axial sections were acquired from the lung bases to the pubic symphysis. Coronal and sagittal reformats were performed. For radiation dose reduction, the following was used: automated exposure control, adjustment of mA and/or kV according to patient size. COMPARISON: [facility], CT, CT ABDOMEN PELVIS W CON, 02/07/2021, 21:45. FINDINGS: Image quality: Excellent. Lung bases: Bibasilar atelectasis. Heart: Mild cardiomegaly with suggestion of mitral valve prosthesis. Esophageal varices are noted. ABDOMEN: Liver: Decreased attenuation of the liver, compatible with hepatic steatosis. The liver is enlarged, measuring 23 cm in length. Nodular contour of the liver, compatible with cirrhosis. Gallbladder: The gallbladder appears contracted. Biliary ducts: Unremarkable. Pancreas: Unremarkable. Spleen: Normal contour. The spleen is enlarged, measuring 16.5 cm in length. Adrenal Glands: Unremarkable. Kidneys and Ureters: Unremarkable. Stomach and Bowel: No evidence of intestinal obstruction. A few scattered sigmoid diverticuli are seen. The appendix is not well seen. Peritoneum: No abnormal intraperitoneal fluid. No free air. Ventral Wall: Trace fat containing periumbilical hernia with surrounding infiltrative change. Abdominal Nodes: No retroperitoneal or mesenteric adenopathy by size criteria. Vessels: Aorta and inferior vena cava are normal in size. 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 PELVIS: Pelvic Organs: Prominence of the prostate measuring 4.5 cm in transverse dimension. Bladder: Unremarkable. Pelvic Nodes: No enlarged lymph nodes. Miscellaneous: No inguinal hernias are seen. Linear infiltrative change in the right ventral subcutaneous fat, compatible with prior cholecystostomy tract. Bones: Multifocal degenerative change. T11 and L3 superior endplate deformities, likely reflecting Schmorl nodes. Redemonstrated superior compression deformities of L1 and L4-5, unchanged. IMPRESSION: 1. No acute intra-abdominal/pelvic abnormality. 2. Hepatosplenomegaly. 3. Cirrhotic changes of the liver. 4. Esophageal and gastrosplenic varices. Dictated by: Lemuel Garcai M.D. on 04/09/2021 at 13:05 Approved by: Lemuel Garcia M.D. on 04/09/2021 at 13:26
== END 2021-04-09 15:25 | disposition home or self-care (01) ==
PROVIDERS: Emergency Provider Emergency Medicine; PCP Nurse Practitioner
DX: I95.9 Hypotension, unspecified (principal); R10.31 Right lower quadrant pain; R07.9 Chest pain, unspecified
CPT/HCPCS: 36415; 74177; 80053; 81003; 82550; 83605; 84145; 84484; 85025; 87040; 93005; 96360; 99284

== ENCOUNTER 2023-08-28 09:30 | Emergency (ER) | payer OTHER, SELFPAY ==
[2023-08-28] VITALS (78 sets, daily range): BP systolic 124–185; BP diastolic 57–102; PULSE 72–96; RESP 17–39; TEMP 36.6; O2SAT 80–98; BMI 34.7
--- NOTE | 2023-08-28 09:41 | DI.RAD.S_ITS ---
PROCEDURE: XR CHEST 1V INDICATIONS: Shortness of breath TECHNIQUE: One view of the chest was acquired. COMPARISON: [facility], CR, XR CHEST 1V, 02/07/2021, 21:01. FINDINGS: Surgical changes and devices: None. Lungs and pleura: There is now a large right pleural effusion with compressive atelectasis in the right lung base. Mediastinum: Mediastinal contours appear normal. Cardiomegaly. Bones and chest wall: No suspicious bony lesions. Overlying soft tissues appear unremarkable. IMPRESSION: Large right pleural effusion with compressive atelectasis in the right lung base. Dictated by: Quintin Collins M.D. on 08/28/2023 at 11:48 Approved by: Quintin Collins M.D. on 08/28/2023 at 11:48
[2023-08-28 09:54] LABS: Add Manual Diff / Slide Review NO; Basophils Absolute Auto 100 /uL (0-100); Basophils Percent Auto 0.6 % (0-2); Eosinophils Absolute Auto 400 /uL (0-450); Eosinophils Percent Auto 4.4 % (2-4); Hematocrit 31.8 % (41-53); Hemoglobin 10.3 g/dL (13.5-17.5); Lymphocytes Absolute Auto 1400 /uL (1100-4500); Lymphocytes Percent Auto 16.4 % (25-40); Mean Corpuscular HGB Conc 32.5 % (30-36); Mean Corpuscular Hemoglobin 26.9 PG (26-34); Mean Corpuscular Volume 82.6 fL (80-100); Monocytes Absolute Auto 600 /uL (0-900); Monocytes Percent Auto 7.4 % (3-14); Neutrophils Absolute Auto 6000 /uL (1500-7000); Neutrophils Percent Auto 71.2 % (50-75); Platelet Count 283 X10^3/uL (150-400); Red Blood Cell Count 3.85 X10^6/uL (4.5-5.9); Red Cell Distribution Width 14.4 % (11.6-14.8); White Blood Cell Count 8.5 X10^3/uL (4.5-11.0)
[2023-08-28 10:00] LABS: INR 1.3 (0.9-1.3); Prothrombin Time 15.3 SECONDS (9.4-12.5)
[2023-08-28 10:06] LABS: HEMOLYSIS < 15 (0-50)
[2023-08-28 10:10] LABS: Lactate (Lactic Acid) 2.4 mmol/L (0.7-2.1)
[2023-08-28 10:11] LABS: Alanine Aminotransferase 20 IU/L (<50); Albumin 4.1 g/dL (3.5-5.0); Alkaline Phosphatase 130 U/L (38-126); Aspartate Aminotransferase 25 IU/L (17-59); BUN Creatinine Ratio 24.4 (6-22); Blood Urea Nitrogen 29 mg/dL (9-20); Calcium 9.9 mg/dL (8.4-10.2); Carbon Dioxide 25 mmol/L (22-32); Chloride 106 mmol/L (98-107); Estimated Glomerular Filt Rate > 60 mL/min (>60); Globulin 4.2 g/dL (1.7-4.1); Glucose 111 mg/dL (80-110); Potassium 4.7 mmol/L (3.4-5.1); Sodium 140 mmol/L (137-145); Total Protein 8.3 g/dL (6.3-8.2)
[2023-08-28 10:22] LABS: NT-proBNP (BNP-Adult 18+) 9360 pg/mL (<125)
[2023-08-28 10:27] LABS: Troponin I 0.328 ng/mL (0.01-0.034)
--- NOTE | 2023-08-28 10:53 | ED_ITS ---
HPI - General Adult <Rossana Jason MD - Last Filed: 09/02/23 14:48> General Chief complaint: Shortness of Breath/Dyspnea Stated complaint: sob, requesting oxygen, sent by DI Time Seen by Provider: 08/28/23 09:51 Source: patient Mode of arrival: Wheelchair History of Present Illness HPI narrative: 67-year-old gentleman with a history of type 2 diabetes, severe aortic valvular disease, history of alcohol use disorder with Wernicke's encephalopathy noted on medical records who fell and broke his left tib-fib with surgical intervention and is currently at a snf facility for orthopedic rehab. He was in the hospital today for a arterial ultrasound as part of a preop evaluation for valve surgery to be scheduled in [place]. While he was having the ultrasound he became pale, diaphoretic, acutely short of breath and was transported to the ER for further evaluation. Patient notes that last night he was provided with an oxygen concentrate or with instructions to use 2 L as needed for dyspnea. He states that he woke up today and simply was not feeling well and after the episode with the acute shortness of breath during the ultrasound he continues to ?not feel well? when pressed further he states that he does have some chest tightness throughout the entire chest, he feels short of breath and globally weak. He has not complaining of headache, palpitations, abdominal pain. Has not had recent fevers. Related Data Home Medications Medication Instructions Recorded Confirmed amitriptyline 50 mg tablet 50 mg PO ONCE PM 08/29/23 08/29/23 atorvastatin 40 mg tablet 40 mg PO DAILY 08/29/23 08/29/23 duloxetine 20 mg capsule,delayed 20 mg PO BID 08/29/23 08/29/23 release finasteride 5 mg tablet 5 mg PO DAILY 08/29/23 08/29/23 gabapentin 300 mg capsule 600 mg PO TID 08/29/23 08/29/23 metformin 1,000 mg tablet 1,000 mg PO BID 08/29/23 08/29/23 pantoprazole 40 mg tablet,delayed 40 mg PO DAILY 08/29/23 08/29/23 release spironolactone 50 mg tablet 50 mg PO DAILY 08/29/23 08/29/23 tamsulosin 0.4 mg capsule 0.8 mg PO QPM 08/29/23 08/29/23 Allergies Allergy/AdvReac Type Severity Reaction Status Date / Time No Known Drug Allergies Allergy Verified 08/28/23 09:41 Review of Systems <Rossana Jason MD - Last Filed: 09/02/23 14:48> Review of Systems Narrative: Pertinent positive and negative findings as per HPI Patient History <Rossana Jason MD - Last Filed: 09/02/23 14:48> Medical History Lumbosacral radiculopathy at L5 Compression fracture (10/14/18) Age-related osteoporosis with current pathol fracture of vertebra Compression fracture of L4 vertebra (04/2020) Diabetic neuropathy Alcoholism Neuropathy Diabetes Surgical History S/P epidural steroid injection History of lumbar fusion Social History marital status: household members: none Smoking Status: Former smoker alcohol intake: former Smoking Status: Former smoker alcohol intake frequency: holidays/special occasions only Substance Use Type: does not use Exam <Rossana Jason MD - Last Filed: 09/02/23 14:48> Initial Vital Signs Initial Vital Signs: Vital Signs Temperature 97.9 F 08/28/23 09:32 Pulse Rate 85 08/28/23 09:32 Respiratory Rate 18 08/28/23 09:32 Blood Pressure 140/102 H 08/28/23 09:32 Pulse Oximetry 80 L 08/28/23 09:32 Oxygen Delivery Method Room Air 08/28/23 09:32 General: Chronically ill-appearing, slightly pale able to participate completely with exam and history. HEENT: Moist mucous membranes, normal sclera with reactive pupils, Neck: No JVD, supple Respiratory: Lungs with diminished air sounds throughout the entire right side. No wheezes or rhonchi appreciated Cardiac: Regular rate and rhythm. 4/6 systolic murmur Abdomen: Soft, nontender, good bowel tones, no flank pain Skin: Chronic venous stasis dermatitis with erythema and lichenification and plaque formation of skin over the lower extremities bilaterally. 2+ lower extremity edema Neurologic: Globally weak but otherwise Grossly neurologically intact with no obvious asymmetries or abnormalities Extremities: Left leg is slightly more swollen than the right, recent ORIF with instrumentation of the tib-fib on this side. Psych: Cooperative, appropriate insight and affect <Bhakti Tony DO - Last Filed: 08/30/23 02:18> Initial Vital Signs Initial Vital Signs: Vital Signs Temperature 97.9 F 08/28/23 09:32 Pulse Rate 85 08/28/23 09:32 Respiratory Rate 18 08/28/23 09:32 Blood Pressure 140/102 H 08/28/23 09:32 Pulse Oximetry 80 L 08/28/23 09:32 Oxygen Delivery Method Room Air 08/28/23 09:32 <Latonia Keenan DO - Last Filed: 08/29/23 19:04> Initial Vital Signs Initial Vital Signs: Vital Signs Temperature 97.9 F 08/28/23 09:32 Pulse Rate 85 08/28/23 09:32 Respiratory Rate 18 08/28/23 09:32 Blood Pressure 140/102 H 08/28/23 09:32 Pulse Oximetry 80 L 08/28/23 09:32 Oxygen Delivery Method Room Air 08/28/23 09:32 Course <Rossana Jason MD - Last Filed: 09/02/23 14:48> Orders Ordered: Discontinued Medications Acetaminophen (Acetaminophen 325 Mg Tablet) 975 mg PO NOW ONE Stop: 08/28/23 11:49 Last Admin: 08/28/23 11:50 Dose: 975 mg Documented By: STEWART Aspirin (Aspirin 81 Mg Chew Tab) 324 mg PO NOW ONE Stop: 08/28/23 10:55 Last Admin: 08/28/23 11:08 Dose: 324 mg Documented By: STEWART Aspirin (Aspirin 81 Mg Chew Tab) 81 mg PO DAILY [facility] Last Admin: 08/29/23 09:28 Dose: 81 mg Documented By: CRISTHIAN Atorvastatin Calcium (Atorvastatin 20 Mg Tablet) 80 mg PO DAILY [facility] Last Admin: 08/29/23 09:30 Dose: 80 mg Documented By: CRISTHIAN Furosemide (Furosemide 40 Mg/4 Ml Vial) 40 mg IV NOW ONE Stop: 08/29/23 08:29 Last Admin: 08/29/23 09:31 Dose: 40 mg Documented By: CRISTHIAN Heparin Sodium (Porcine) (Heparin 5,000 Unit/Ml Vial) 5,000 unit IV NOW ONE Stop: 08/28/23 10:55 Last Admin: 08/28/23 11:43 Dose: 5,000 unit Documented By: STEWART Heparin Sodium/Dextrose (Heparin Drip) 25,000 unit in 500 mls @ 31.026 mls/hr IV CONT [facility]; Protocol Last Admin: 08/29/23 13:06 Dose: 7.74 units/kg/hr, 20 mls/hr Documented By: CRISTHIAN Co-signed By: JAREK Titration: 08/29/23 12:44 Dose: Infused Documented By: CRISTHIAN Co-signed By: JAREK Admin: 08/28/23 11:44 Dose: 7.74 units/kg/hr, 20 mls/hr Documented By: STEWART Co-signed By: JOSEPHINE Dextrose (D10w) 100 mls @ 1,200 mls/hr IV PRN PRN PRN Reason: Hypoglycemia Insulin Human Lispro (Insulin Lispro 100 Unit/Ml 3ml Vial) 0 unit SUBCUT ACHS [facility]; Protocol Morphine Sulfate (Morphine 2 Mg/Ml Inj) 2 mg IV Q2HR PRN PRN Reason: Pain, Moderate (4-6) Last Admin: 08/28/23 16:49 Dose: 2 mg Documented By: STEWART Nitroglycerin (Nitroglycerin 0.4 Mg Sl Tab) 0.4 mg SL [id number] PRN PRN Reason: Chest Pain Last Admin: 08/28/23 11:52 Dose: 0.4 mg Documented By: Admin: 08/28/23 11:38 Dose: 0.4 mg Documented By: Admin: 08/28/23 11:31 Dose: 0.4 mg Documented By: STEWART Nitroglycerin (Nitroglycerin Oint 1 Inch/Gm Oint...G.) 0.5 inch TOP NOW ONE Stop: 08/28/23 11:38 Last Admin: 08/28/23 12:03 Dose: 0.5 inch Documented By: STEWART Nitroglycerin (Nitroglycerin Oint 1 Inch/Gm Oint...G.) 0.5 inch TOP NOW ONE Stop: 08/29/23 10:22 Last Admin: 08/29/23 10:31 Dose: 0.5 inch Documented By: CRISTHIAN Ondansetron HCl (Ondansetron 4 Mg/2 Ml Inj) 4 mg IV NOW ONE Stop: 08/28/23 16:45 Last Admin: 08/28/23 16:48 Dose: 4 mg Documented By: STEWART Ondansetron HCl (Ondansetron 4 Mg/2 Ml Inj) 4 mg IV NOW ONE Stop: 08/29/23 08:24 Last Admin: 08/29/23 08:38 Dose: 4 mg Documented By: AZAM Oxycodone HCl (Oxycodone Ir 10 Mg Tablet) 10 mg PO Q6HR PRN PRN Reason: Pain, Severe (7-10) Oxycodone HCl (Oxycodone Ir 5 Mg Tablet) 10 mg PO Q6HR PRN PRN Reason: Pain, Severe (7-10) Last Admin: 08/29/23 09:29 Dose: 10 mg Documented By: CRISTHIAN Pantoprazole Sodium (Pantoprazole 40 Mg Vial) 40 mg IV NOW ONE Stop: 08/29/23 08:29 Last Admin: 08/29/23 09:31 Dose: 40 mg Documented By: CRISTHIAN Pantoprazole Sodium (Pantoprazole 40 Mg Vial) 40 mg IV NOW ONE Stop: 08/29/23 09:31 Last Admin: 08/29/23 10:04 Dose: Not Given Documented By: CRISTHIAN Spironolactone (Spironolactone 25 Mg Tablet) 50 mg PO DAILY [facility] Last Admin: 08/29/23 09:30 Dose: 50 mg Documented By: CRISTHIAN Vital Signs Vital signs: Vital Signs - 8 hr 08/29/23 11:30 08/29/23 11:30 08/29/23 12:00 Pulse Rate 72 72 Respiratory Rate 22 17 Blood Pressure 133/70 Pulse Oximetry 95 96 Oxygen Delivery Method Nasal Cannula Nasal Cannula Oxygen Flow Rate 5 5 08/29/23 12:00 Pulse Rate Respiratory Rate Blood Pressure 144/65 H Pulse Oximetry Oxygen Delivery Method Oxygen Flow Rate <Bhakti Tony DO - Last Filed: 08/30/23 02:18> Orders Ordered: Discontinued Medications Acetaminophen (Acetaminophen 325 Mg Tablet) 975 mg PO NOW ONE Stop: 08/28/23 11:49 Last Admin: 08/28/23 11:50 Dose: 975 mg Documented By: STEWART Aspirin (Aspirin 81 Mg Chew Tab) 324 mg PO NOW ONE Stop: 08/28/23 10:55 Last Admin: 08/28/23 11:08 Dose: 324 mg Documented By: STEWART Aspirin (Aspirin 81 Mg Chew Tab) 81 mg PO DAILY [facility] Last Admin: 08/29/23 09:28 Dose: 81 mg Documented By: CRISTHIAN Atorvastatin Calcium (Atorvastatin 20 Mg Tablet) 80 mg PO DAILY [facility] Last Admin: 08/29/23 09:30 Dose: 80 mg Documented By: CRISTHIAN Furosemide (Furosemide 40 Mg/4 Ml Vial) 40 mg IV NOW ONE Stop: 08/29/23 08:29 Last Admin: 08/29/23 09:31 Dose: 40 mg Documented By: CRISTHIAN Heparin Sodium (Porcine) (Heparin 5,000 Unit/Ml Vial) 5,000 unit IV NOW ONE Stop: 08/28/23 10:55 Last Admin: 08/28/23 11:43 Dose: 5,000 unit Documented By: STEWART Heparin Sodium/Dextrose (Heparin Drip) 25,000 unit in 500 mls @ 31.026 mls/hr IV CONT [facility]; Protocol Last Admin: 08/29/23 13:06 Dose: 7.74 units/kg/hr, 20 mls/hr Documented By: CRISTHIAN Co-signed By: JAREK Titration: 08/29/23 12:44 Dose: Infused Documented By: CRISTHIAN Co-signed By: JAREK Admin: 08/28/23 11:44 Dose: 7.74 units/kg/hr, 20 mls/hr Documented By: STEWART Co-signed By: JOSEPHINE Dextrose (D10w) 100 mls @ 1,200 mls/hr IV PRN PRN PRN Reason: Hypoglycemia Insulin Human Lispro (Insulin Lispro 100 Unit/Ml 3ml Vial) 0 unit SUBCUT ACHS [facility]; Protocol Morphine Sulfate (Morphine 2 Mg/Ml Inj) 2 mg IV Q2HR PRN PRN Reason: Pain, Moderate (4-6) Last Admin: 08/28/23 16:49 Dose: 2 mg Documented By: STEWART Nitroglycerin (Nitroglycerin 0.4 Mg Sl Tab) 0.4 mg SL [id number] PRN PRN Reason: Chest Pain Last Admin: 08/28/23 11:52 Dose: 0.4 mg Documented By: Admin: 08/28/23 11:38 Dose: 0.4 mg Documented By: Admin: 08/28/23 11:31 Dose: 0.4 mg Documented By: STEWART Nitroglycerin (Nitroglycerin Oint 1 Inch/Gm Oint...G.) 0.5 inch TOP NOW ONE Stop: 08/28/23 11:38 Last Admin: 08/28/23 12:03 Dose: 0.5 inch Documented By: STEWART Nitroglycerin (Nitroglycerin Oint 1 Inch/Gm Oint...G.) 0.5 inch TOP NOW ONE Stop: 08/29/23 10:22 Last Admin: 08/29/23 10:31 Dose: 0.5 inch Documented By: CRISTHIAN Ondansetron HCl (Ondansetron 4 Mg/2 Ml Inj) 4 mg IV NOW ONE Stop: 08/28/23 16:45 Last Admin: 08/28/23 16:48 Dose: 4 mg Documented By: STEWART Ondansetron HCl (Ondansetron 4 Mg/2 Ml Inj) 4 mg IV NOW ONE Stop: 08/29/23 08:24 Last Admin: 08/29/23 08:38 Dose: 4 mg Documented By: AZAM Oxycodone HCl (Oxycodone Ir 10 Mg Tablet) 10 mg PO Q6HR PRN PRN Reason: Pain, Severe (7-10) Oxycodone HCl (Oxycodone Ir 5 Mg Tablet) 10 mg PO Q6HR PRN PRN Reason: Pain, Severe (7-10) Last Admin: 08/29/23 09:29 Dose: 10 mg Documented By: CRISTHIAN Pantoprazole Sodium (Pantoprazole 40 Mg Vial) 40 mg IV NOW ONE Stop: 08/29/23 08:29 Last Admin: 08/29/23 09:31 Dose: 40 mg Documented By: CRISTHIAN Pantoprazole Sodium (Pantoprazole 40 Mg Vial) 40 mg IV NOW ONE Stop: 08/29/23 09:31 Last Admin: 08/29/23 10:04 Dose: Not Given Documented By: CRISTHIAN Spironolactone (Spironolactone 25 Mg Tablet) 50 mg PO DAILY [facility] Last Admin: 08/29/23 09:30 Dose: 50 mg Documented By: CRISTHIAN Vital Signs Vital signs: Vital Signs - 8 hr 08/29/23 11:30 08/29/23 11:30 08/29/23 12:00 Pulse Rate 72 72 Respiratory Rate 22 17 Blood Pressure 133/70 Pulse Oximetry 95 96 Oxygen Delivery Method Nasal Cannula Nasal Cannula Oxygen Flow Rate 5 5 08/29/23 12:00 Pulse Rate Respiratory Rate Blood Pressure 144/65 H Pulse Oximetry Oxygen Delivery Method Oxygen Flow Rate <Latonia Keenan, DO - Last Filed: 08/29/23 19:04> Orders Ordered: Discontinued Medications Acetaminophen (Acetaminophen 325 Mg Tablet) 975 mg PO NOW ONE Stop: 08/28/23 11:49 Last Admin: 08/28/23 11:50 Dose: 975 mg Documented By: STEWART Aspirin (Aspirin 81 Mg Chew Tab) 324 mg PO NOW ONE Stop: 08/28/23 10:55 Last Admin: 08/28/23 11:08 Dose: 324 mg Documented By: STEWART Aspirin (Aspirin 81 Mg Chew Tab) 81 mg PO DAILY [facility] Last Admin: 08/29/23 09:28 Dose: 81 mg Documented By: CRISTHIAN Atorvastatin Calcium (Atorvastatin 20 Mg Tablet) 80 mg PO DAILY [facility] Last Admin: 08/29/23 09:30 Dose: 80 mg Documented By: CRISTHIAN Furosemide (Furosemide 40 Mg/4 Ml Vial) 40 mg IV NOW ONE Stop: 08/29/23 08:29 Last Admin: 08/29/23 09:31 Dose: 40 mg Documented By: CRISTHIAN Heparin Sodium (Porcine) (Heparin 5,000 Unit/Ml Vial) 5,000 unit IV NOW ONE Stop: 08/28/23 10:55 Last Admin: 08/28/23 11:43 Dose: 5,000 unit Documented By: STEWART Heparin Sodium/Dextrose (Heparin Drip) 25,000 unit in 500 mls @ 31.026 mls/hr IV CONT [facility]; Protocol Last Admin: 08/29/23 13:06 Dose: 7.74 units/kg/hr, 20 mls/hr Documented By: CRISTHIAN Co-signed By: JAREK Titration: 08/29/23 12:44 Dose: Infused Documented By: CRISTHIAN Co-signed By: JAREK Admin: 08/28/23 11:44 Dose: 7.74 units/kg/hr, 20 mls/hr Documented By: STEWART Co-signed By: JOSEPHINE Dextrose (D10w) 100 mls @ 1,200 mls/hr IV PRN PRN PRN Reason: Hypoglycemia Insulin Human Lispro (Insulin Lispro 100 Unit/Ml 3ml Vial) 0 unit SUBCUT ACHS [facility]; Protocol Morphine Sulfate (Morphine 2 Mg/Ml Inj) 2 mg IV Q2HR PRN PRN Reason: Pain, Moderate (4-6) Last Admin: 08/28/23 16:49 Dose: 2 mg Documented By: STEWART Nitroglycerin (Nitroglycerin 0.4 Mg Sl Tab) 0.4 mg SL [id number] PRN PRN Reason: Chest Pain Last Admin: 08/28/23 11:52 Dose: 0.4 mg Documented By: Admin: 08/28/23 11:38 Dose: 0.4 mg Documented By: Admin: 08/28/23 11:31 Dose: 0.4 mg Documented By: STEWART Nitroglycerin (Nitroglycerin Oint 1 Inch/Gm Oint...G.) 0.5 inch TOP NOW ONE Stop: 08/28/23 11:38 Last Admin: 08/28/23 12:03 Dose: 0.5 inch Documented By: STEWART Nitroglycerin (Nitroglycerin Oint 1 Inch/Gm Oint...G.) 0.5 inch TOP NOW ONE Stop: 08/29/23 10:22 Last Admin: 08/29/23 10:31 Dose: 0.5 inch Documented By: CRISTHIAN Ondansetron HCl (Ondansetron 4 Mg/2 Ml Inj) 4 mg IV NOW ONE Stop: 08/28/23 16:45 Last Admin: 08/28/23 16:48 Dose: 4 mg Documented By: STEWART Ondansetron HCl (Ondansetron 4 Mg/2 Ml Inj) 4 mg IV NOW ONE Stop: 08/29/23 08:24 Last Admin: 08/29/23 08:38 Dose: 4 mg Documented By: AZAM Oxycodone HCl (Oxycodone Ir 10 Mg Tablet) 10 mg PO Q6HR PRN PRN Reason: Pain, Severe (7-10) Oxycodone HCl (Oxycodone Ir 5 Mg Tablet) 10 mg PO Q6HR PRN PRN Reason: Pain, Severe (7-10) Last Admin: 08/29/23 09:29 Dose: 10 mg Documented By: CRISTHIAN Pantoprazole Sodium (Pantoprazole 40 Mg Vial) 40 mg IV NOW ONE Stop: 08/29/23 08:29 Last Admin: 08/29/23 09:31 Dose: 40 mg Documented By: CRISTHIAN Pantoprazole Sodium (Pantoprazole 40 Mg Vial) 40 mg IV NOW ONE Stop: 08/29/23 09:31 Last Admin: 08/29/23 10:04 Dose: Not Given Documented By: CRISTHIAN Spironolactone (Spironolactone 25 Mg Tablet) 50 mg PO DAILY [facility] Last Admin: 08/29/23 09:30 Dose: 50 mg Documented By: CRISTHIAN Vital Signs Vital signs: Vital Signs - 8 hr 08/29/23 11:30 08/29/23 11:30 08/29/23 12:00 Pulse Rate 72 72 Respiratory Rate 22 17 Blood Pressure 133/70 Pulse Oximetry 95 96 Oxygen Delivery Method Nasal Cannula Nasal Cannula Oxygen Flow Rate 5 5 08/29/23 12:00 Pulse Rate Respiratory Rate Blood Pressure 144/65 H Pulse Oximetry Oxygen Delivery Method Oxygen Flow Rate Medical Decision Making <Rossana Jason MD - Last Filed: 09/02/23 14:48> Lab Data 08/29/23 12:18 08/29/23 12:18 Labs: Lab Results 08/28/23 08/28/23 08/28/23 Range/Units 09:39 11:41 17:44 WBC 8.5 (4.5-11.0) X10^3/uL RBC 3.85 L (4.5-5.9) X10^6/uL Hgb 10.3 L (13.5-17.5) g/dL Hct 31.8 L (41-53) % MCV 82.6 (80-100) fL MCH 26.9 (26-34) PG MCHC 32.5 (30-36) % RDW 14.4 (11.6-14.8) % Plt Count 283 (150-400) X10^3/uL Neut % (Auto) 71.2 (50-75) % Lymph % (Auto) 16.4 L (25-40) % [place] % (Auto) 7.4 (3-14) % Eos % (Auto) 4.4 H (2-4) % Baso % (Auto) 0.6 (0-2) % Neut # (Auto) 6000 (9795-1779) /uL Lymph # (Auto) 1400 (8785-6224) /uL [place] # (Auto) 600 (0-900) /uL Eos # (Auto) 400 (0-450) /uL Baso # (Auto) 100 (0-100) /uL PT 15.3 H (9.4-12.5) SECONDS INR 1.3 (0.9-1.3) APTT 40 H 50 H D (25.1-36.5) SECONDS Sodium 140 (137-145) mmol/L Potassium 4.7 (3.4-5.1) mmol/L Chloride 106 (98-107) mmol/L Carbon Dioxide 25 (22-32) mmol/L BUN 29 H (9-20) mg/dL Creatinine 1.19 (0.66-1.25) mg/dL Estimated GFR > 60 (>60) mL/min BUN/Creatinine Ratio 24.4 H (6-22) Glucose 111 H (80-110) mg/dL Lactate 2.4 H 1.3 (0.7-2.1) mmol/L Calcium 9.9 (8.4-10.2) mg/dL Total Bilirubin 1.0 (0.2-1.3) mg/dL AST 25 (17-59) IU/L ALT 20 (<50) IU/L Alkaline Phosphatase 130 H (38-126) U/L Troponin I 0.328 H* 0.301 H* (0.01-0.034) ng/mL NT-Pro-B Natriuret Pep 9360 H (<125) pg/mL Total Protein 8.3 H (6.3-8.2) g/dL Albumin 4.1 (3.5-5.0) g/dL Globulin 4.2 H (1.7-4.1) g/dL Albumin/Globulin Ratio 1.0 (1.0-2.8) 08/28/23 08/29/23 08/29/23 Range/Units 23:50 05:57 12:18 WBC 7.7 7.9 (4.5-11.0) X10^3/uL RBC 3.23 L 3.24 L (4.5-5.9) X10^6/uL Hgb 8.9 L 8.9 L (13.5-17.5) g/dL Hct 26.7 L 26.9 L (41-53) % MCV 82.6 83.1 (80-100) fL MCH 27.4 27.6 (26-34) PG MCHC 33.2 33.2 (30-36) % RDW 14.3 14.3 (11.6-14.8) % Plt Count 240 239 (150-400) X10^3/uL Neut % (Auto) 62.1 75.8 H (50-75) % Lymph % (Auto) 22.8 L 12.6 L (25-40) % [place] % (Auto) 10.3 8.4 (3-14) % Eos % (Auto) 3.3 2.6 (2-4) % Baso % (Auto) 1.5 0.6 (0-2) % Neut # (Auto) 4800 6000 (5068-3831) /uL Lymph # (Auto) 1800 1000 L (5764-3199) /uL [place] # (Auto) 800 700 (0-900) /uL Eos # (Auto) 300 200 (0-450) /uL Baso # (Auto) 100 0 (0-100) /uL PT (9.4-12.5) SECONDS INR (0.9-1.3) APTT 47 H 44 H (25.1-36.5) SECONDS Sodium 141 139 (137-145) mmol/L Potassium 5.2 H 5.2 H (3.4-5.1) mmol/L Chloride 108 H 106 (98-107) mmol/L Carbon Dioxide 27 27 (22-32) mmol/L BUN 27 H 25 H (9-20) mg/dL Creatinine 1.07 1.11 (0.66-1.25) mg/dL Estimated GFR > 60 > 60 (>60) mL/min BUN/Creatinine Ratio 25.2 H 22.5 H (6-22) Glucose 123 H 160 H (80-110) mg/dL Lactate (0.7-2.1) mmol/L Calcium 8.9 9.1 (8.4-10.2) mg/dL Total Bilirubin 0.8 0.9 (0.2-1.3) mg/dL AST 34 17 (17-59) IU/L ALT 14 14 (<50) IU/L Alkaline Phosphatase 111 109 (38-126) U/L Troponin I 0.243 H* 0.190 H* (0.01-0.034) ng/mL NT-Pro-B Natriuret Pep (<125) pg/mL Total Protein 6.8 6.8 (6.3-8.2) g/dL Albumin 3.4 L 3.4 L (3.5-5.0) g/dL Globulin 3.4 3.4 (1.7-4.1) g/dL Albumin/Globulin Ratio 1.0 1.0 (1.0-2.8) Point of Care Testing Glucose POC 140 Point of care testing: Point of Care Testing Glucose POC 140 MDM Narrative Medical decision making narrative: CC: Acute episode of dyspnea during outpatient diagnostic study for evaluation of left lower extremity arteries prior to cardiac surgery Complicating co-morbidities: Diabetes, recent left lower extremity fracture in a snf facility for rehab secondary to that, Data collected from: patient, caregiver from his current care facility Social determinants of health that may influence the patients condition: Recent surgery currently in snf facility for rehab Medical records reviewed: Records from [facility] are reviewed. He had an admission date of 03/06/2023 and a discharge date April 21 (47day admit). Underwent ORIF, at the time noted to have severe aortic stenosis with an echocardiogram showing ejection fraction to 60-65%. He was treated for an atypical pneumonia acute metabolic encephalopathy with eventual discharge to snf facility for continued rehab Differential considered: Acute coronary event, pulmonary embolism, pneumonia, sepsis Exam documented above, pertinent findings include: Pale, diminished breath sounds on the right, loud systolic murmur, significant chronic venous stasis dermatitis with bilateral edema. He is alert and appropriate otherwise able to speak in full sentences Lab Test results independently reviewed as above. Pertinent findings: CBC is notable for normal white blood cell count. Mild anemia with hemoglobin at 10.3 and 31.8. This is not a dramatic change from his baseline. Platelets are normal Chemistries show appropriate renal function with creatinine at 1.19 and GFR greater than 60. Bili AST ALT are appropriate. Alk-phos is minimally elevated at 130. BNP is slightly elevated at 9360 Troponin is significantly elevated to 8 Independently reviewed EKG: Sinus rhythm at a rate of 74, poor baseline, nonspecific ST changes, not meeting criteria for STEMI Repeat EKG at11:12 shows sinus rhythm at a rate of 75. ST depression and flipped T-waves anterolaterally. Not meeting STEMI criteria Imaging studies independently reviewed: Chest x-ray shows large right sided pleural effusion with at least 2/3 of the lung space involved. Mild cardiomegaly. Consultations:[address] [facility] to see if beds available for transfer. [address] [facility] still looking for Tele beds, will check back after 730pm Treatments: Nitroglycerin is given to see if it helps with any of the chest tightness. He is started on heparin with the troponin returning positive Re-evaluations: Discussion: 67-year-old gentleman with NSTEMI, large right pleural effusion, aortic valvular disease scheduled for surgical intervention at [facility] currently on heparin. <Bhakti Tony, DO - Last Filed: 08/30/23 02:18> Lab Data Labs: Lab Results 08/28/23 08/28/23 08/28/23 Range/Units 09:39 11:41 17:44 WBC 8.5 (4.5-11.0) X10^3/uL RBC 3.85 L (4.5-5.9) X10^6/uL Hgb 10.3 L (13.5-17.5) g/dL Hct 31.8 L (41-53) % MCV 82.6 (80-100) fL MCH 26.9 (26-34) PG MCHC 32.5 (30-36) % RDW 14.4 (11.6-14.8) % Plt Count 283 (150-400) X10^3/uL Neut % (Auto) 71.2 (50-75) % Lymph % (Auto) 16.4 L (25-40) % [place] % (Auto) 7.4 (3-14) % Eos % (Auto) 4.4 H (2-4) % Baso % (Auto) 0.6 (0-2) % Neut # (Auto) 6000 (1034-2780) /uL Lymph # (Auto) 1400 (9215-8030) /uL [place] # (Auto) 600 (0-900) /uL Eos # (Auto) 400 (0-450) /uL Baso # (Auto) 100 (0-100) /uL PT 15.3 H (9.4-12.5) SECONDS INR 1.3 (0.9-1.3) APTT 40 H 50 H D (25.1-36.5) SECONDS Sodium 140 (137-145) mmol/L Potassium 4.7 (3.4-5.1) mmol/L Chloride 106 (98-107) mmol/L Carbon Dioxide 25 (22-32) mmol/L BUN 29 H (9-20) mg/dL Creatinine 1.19 (0.66-1.25) mg/dL Estimated GFR > 60 (>60) mL/min BUN/Creatinine Ratio 24.4 H (6-22) Glucose 111 H (80-110) mg/dL Lactate 2.4 H 1.3 (0.7-2.1) mmol/L Calcium 9.9 (8.4-10.2) mg/dL Total Bilirubin 1.0 (0.2-1.3) mg/dL AST 25 (17-59) IU/L ALT 20 (<50) IU/L Alkaline Phosphatase 130 H (38-126) U/L Troponin I 0.328 H* 0.301 H* (0.01-0.034) ng/mL NT-Pro-B Natriuret Pep 9360 H (<125) pg/mL Total Protein 8.3 H (6.3-8.2) g/dL Albumin 4.1 (3.5-5.0) g/dL Globulin 4.2 H (1.7-4.1) g/dL Albumin/Globulin Ratio 1.0 (1.0-2.8) 08/28/23 08/29/23 08/29/23 Range/Units 23:50 05:57 12:18 WBC 7.7 7.9 (4.5-11.0) X10^3/uL RBC 3.23 L 3.24 L (4.5-5.9) X10^6/uL Hgb 8.9 L 8.9 L (13.5-17.5) g/dL Hct 26.7 L 26.9 L (41-53) % MCV 82.6 83.1 (80-100) fL MCH 27.4 27.6 (26-34) PG MCHC 33.2 33.2 (30-36) % RDW 14.3 14.3 (11.6-14.8) % Plt Count 240 239 (150-400) X10^3/uL Neut % (Auto) 62.1 75.8 H (50-75) % Lymph % (Auto) 22.8 L 12.6 L (25-40) % [place] % (Auto) 10.3 8.4 (3-14) % Eos % (Auto) 3.3 2.6 (2-4) % Baso % (Auto) 1.5 0.6 (0-2) % Neut # (Auto) 4800 6000 (6138-8919) /uL Lymph # (Auto) 1800 1000 L (5412-0093) /uL [place] # (Auto) 800 700 (0-900) /uL Eos # (Auto) 300 200 (0-450) /uL Baso # (Auto) 100 0 (0-100) /uL PT (9.4-12.5) SECONDS INR (0.9-1.3) APTT 47 H 44 H (25.1-36.5) SECONDS Sodium 141 139 (137-145) mmol/L Potassium 5.2 H 5.2 H (3.4-5.1) mmol/L Chloride 108 H 106 (98-107) mmol/L Carbon Dioxide 27 27 (22-32) mmol/L BUN 27 H 25 H (9-20) mg/dL Creatinine 1.07 1.11 (0.66-1.25) mg/dL Estimated GFR > 60 > 60 (>60) mL/min BUN/Creatinine Ratio 25.2 H 22.5 H (6-22) Glucose 123 H 160 H (80-110) mg/dL Lactate (0.7-2.1) mmol/L Calcium 8.9 9.1 (8.4-10.2) mg/dL Total Bilirubin 0.8 0.9 (0.2-1.3) mg/dL AST 34 17 (17-59) IU/L ALT 14 14 (<50) IU/L Alkaline Phosphatase 111 109 (38-126) U/L Troponin I 0.243 H* 0.190 H* (0.01-0.034) ng/mL NT-Pro-B Natriuret Pep (<125) pg/mL Total Protein 6.8 6.8 (6.3-8.2) g/dL Albumin 3.4 L 3.4 L (3.5-5.0) g/dL Globulin 3.4 3.4 (1.7-4.1) g/dL Albumin/Globulin Ratio 1.0 1.0 (1.0-2.8) Point of Care Testing Glucose POC 140 Point of care testing: Point of Care Testing Glucose POC 140 MDM Narrative Medical decision making narrative: CC: Acute episode of dyspnea during outpatient diagnostic study for evaluation of left lower extremity arteries prior to cardiac surgery Complicating co-morbidities: Diabetes, recent left lower extremity fracture in a snf facility for rehab secondary to that, Data collected from: patient, caregiver from his current care facility Social determinants of health that may influence the patients condition: Recent surgery currently in snf facility for rehab Medical records reviewed: Records from [facility] are reviewed. He had an admission date of 03/06/2023 and a discharge date April 21 (47day admit). Underwent ORIF, at the time noted to have severe aortic stenosis with an echocardiogram showing ejection fraction to 60-65%. He was treated for an atypical pneumonia acute metabolic encephalopathy with eventual discharge to snf facility for continued rehab Differential considered: Acute coronary event, pulmonary embolism, pneumonia, sepsis Exam documented above, pertinent findings include: Pale, diminished breath sounds on the right, loud systolic murmur, significant chronic venous stasis dermatitis with bilateral edema. He is alert and appropriate otherwise able to speak in full sentences Lab Test results independently reviewed as above. Pertinent findings: CBC is notable for normal white blood cell count. Mild anemia with hemoglobin at 10.3 and 31.8. This is not a dramatic change from his baseline. Platelets are normal Chemistries show appropriate renal function with creatinine at 1.19 and GFR greater than 60. Bili AST ALT are appropriate. Alk-phos is minimally elevated at 130. BNP is slightly elevated at 9360 Troponin is significantly elevated to 8 Independently reviewed EKG: Sinus rhythm at a rate of 74, poor baseline, nonspecific ST changes, not meeting criteria for STEMI Repeat EKG at11:12 shows sinus rhythm at a rate of 75. ST depression and flipped T-waves anterolaterally. Not meeting STEMI criteria Imaging studies independently reviewed: Chest x-ray shows large right sided pleural effusion with at least 2/3 of the lung space involved. Mild cardiomegaly. Consultations:1115 call to [facility] to see if beds available for transfer. 430pm [facility] still looking for Tele beds, will check back after 730pm Treatments: Nitroglycerin is given to see if it helps with any of the chest tightness. He is started on heparin with the troponin returning positive Re-evaluations: Discussion: 67-year-old gentleman with NSTEMI, large right pleural effusion, aortic valvular disease scheduled for surgical intervention at [facility] currently on heparin. Dr. Tony-patient signed out to me by Dr. Jason. He has a large right pleural effusion NSTEMI. Troponins are trending downward. He remains on heparin drip. Awaiting for bed placement at [facility] where he is currently scheduled for a valve replacement. Unfortunately they do not have room for him tonight recommend checking again in the morning. Patient was transferred to hospital bed, without any complaints throughout the night. Patient signed out to Dr. Keenan. Thoracentesis has been ordered for morning 08/29/2023 Dr. Keenan: Patient signed out to myself by Dr. Tony. 67-year-old gentleman history of type 2 diabetes, severe aortic valvular disease, ETOH with Wernicke's encephalopathy who is scheduled for valve evaluation/surgery in [place]. He was having an ultrasound to evaluate preoperatively here became increasingly pale diaphoretic and short of breath. Patient overnight has been on oxygen, has had heparin drip with positive troponins, EKG changes consistent with NSTEMI, patient also has a large pleural effusion, CHF with known severe aortic stenosis. Patient's troponin peaked at 3.28 trending down words to 2.43 overnight, BNP of 9360 with no priors for comparison. Patient has creatinine of 1.07, potassium was 5 2 otherwise normal electrolytes and LFTs. Hemoglobin was down and we will continue to trend. Patient has not had any active bleeding. Patient received, nitro, is currently on a heparin drip with nitro paste in place. Goal is for transfer to [facility], site did not have beds available last night but would like for him to return as he is scheduled for valve replacement. Patient was requesting discharge home because ?you are not doing anything?. Patient seen and evaluated by myself after discussion. Spoke with Dr. Estrada, hospitalist at . Accepts for transfer, awaiting bed assignment. No availability at [facility] currently. Patient had thoracentesis with radiology while awaiting transfer, patient felt much improved. Repeat chest x-ray does not show any pneumothorax but does show some improvement in aeration. Patient's continues to require oxygen but needs decreased looks much more comfortable. <Latonia Keenan, DO - Last Filed: 08/29/23 19:04> Lab Data Labs: Lab Results 08/28/23 08/28/23 08/28/23 Range/Units 09:39 11:41 17:44 WBC 8.5 (4.5-11.0) X10^3/uL RBC 3.85 L (4.5-5.9) X10^6/uL Hgb 10.3 L (13.5-17.5) g/dL Hct 31.8 L (41-53) % MCV 82.6 (80-100) fL MCH 26.9 (26-34) PG MCHC 32.5 (30-36) % RDW 14.4 (11.6-14.8) % Plt Count 283 (150-400) X10^3/uL Neut % (Auto) 71.2 (50-75) % Lymph % (Auto) 16.4 L (25-40) % [place] % (Auto) 7.4 (3-14) % Eos % (Auto) 4.4 H (2-4) % Baso % (Auto) 0.6 (0-2) % Neut # (Auto) 6000 (2857-6971) /uL Lymph # (Auto) 1400 (5121-3897) /uL [place] # (Auto) 600 (0-900) /uL Eos # (Auto) 400 (0-450) /uL Baso # (Auto) 100 (0-100) /uL PT 15.3 H (9.4-12.5) SECONDS INR 1.3 (0.9-1.3) APTT 40 H 50 H D (25.1-36.5) SECONDS Sodium 140 (137-145) mmol/L Potassium 4.7 (3.4-5.1) mmol/L Chloride 106 (98-107) mmol/L Carbon Dioxide 25 (22-32) mmol/L BUN 29 H (9-20) mg/dL Creatinine 1.19 (0.66-1.25) mg/dL Estimated GFR > 60 (>60) mL/min BUN/Creatinine Ratio 24.4 H (6-22) Glucose 111 H (80-110) mg/dL Lactate 2.4 H 1.3 (0.7-2.1) mmol/L Calcium 9.9 (8.4-10.2) mg/dL Total Bilirubin 1.0 (0.2-1.3) mg/dL AST 25 (17-59) IU/L ALT 20 (<50) IU/L Alkaline Phosphatase 130 H (38-126) U/L Troponin I 0.328 H* 0.301 H* (0.01-0.034) ng/mL NT-Pro-B Natriuret Pep 9360 H (<125) pg/mL Total Protein 8.3 H (6.3-8.2) g/dL Albumin 4.1 (3.5-5.0) g/dL Globulin 4.2 H (1.7-4.1) g/dL Albumin/Globulin Ratio 1.0 (1.0-2.8) 08/28/23 08/29/23 08/29/23 Range/Units 23:50 05:57 12:18 WBC 7.7 7.9 (4.5-11.0) X10^3/uL RBC 3.23 L 3.24 L (4.5-5.9) X10^6/uL Hgb 8.9 L 8.9 L (13.5-17.5) g/dL Hct 26.7 L 26.9 L (41-53) % MCV 82.6 83.1 (80-100) fL MCH 27.4 27.6 (26-34) PG MCHC 33.2 33.2 (30-36) % RDW 14.3 14.3 (11.6-14.8) % Plt Count 240 239 (150-400) X10^3/uL Neut % (Auto) 62.1 75.8 H (50-75) % Lymph % (Auto) 22.8 L 12.6 L (25-40) % [place] % (Auto) 10.3 8.4 (3-14) % Eos % (Auto) 3.3 2.6 (2-4) % Baso % (Auto) 1.5 0.6 (0-2) % Neut # (Auto) 4800 6000 (7887-6979) /uL Lymph # (Auto) 1800 1000 L (3958-2997) /uL [place] # (Auto) 800 700 (0-900) /uL Eos # (Auto) 300 200 (0-450) /uL Baso # (Auto) 100 0 (0-100) /uL PT (9.4-12.5) SECONDS INR (0.9-1.3) APTT 47 H 44 H (25.1-36.5) SECONDS Sodium 141 139 (137-145) mmol/L Potassium 5.2 H 5.2 H (3.4-5.1) mmol/L Chloride 108 H 106 (98-107) mmol/L Carbon Dioxide 27 27 (22-32) mmol/L BUN 27 H 25 H (9-20) mg/dL Creatinine 1.07 1.11 (0.66-1.25) mg/dL Estimated GFR > 60 > 60 (>60) mL/min BUN/Creatinine Ratio 25.2 H 22.5 H (6-22) Glucose 123 H 160 H (80-110) mg/dL Lactate (0.7-2.1) mmol/L Calcium 8.9 9.1 (8.4-10.2) mg/dL Total Bilirubin 0.8 0.9 (0.2-1.3) mg/dL AST 34 17 (17-59) IU/L ALT 14 14 (<50) IU/L Alkaline Phosphatase 111 109 (38-126) U/L Troponin I 0.243 H* 0.190 H* (0.01-0.034) ng/mL NT-Pro-B Natriuret Pep (<125) pg/mL Total Protein 6.8 6.8 (6.3-8.2) g/dL Albumin 3.4 L 3.4 L (3.5-5.0) g/dL Globulin 3.4 3.4 (1.7-4.1) g/dL Albumin/Globulin Ratio 1.0 1.0 (1.0-2.8) Point of Care Testing Glucose POC 140 Point of care testing: Point of Care Testing Glucose POC 140 Imaging Data Chest x-ray: Radiologist's Impression: [address] [address] XRay Report Signed Patient: Kin Marie MR#: [id number] : 1955 Acct:[id number] Age/Sex: 67 / M Date of Service: 08/28/23 Loc: ED Accession Number: [id number] Procedure: XR chest 1V Ordering Provider: Rossana Jason MD PROCEDURE: XR CHEST 1V INDICATIONS: Shortness of breath TECHNIQUE: One view of the chest was acquired. COMPARISON: [facility], , XR CHEST 1V, 02/07/2021, 21:01. FINDINGS: Surgical changes and devices: None. Lungs and pleura: There is now a large right pleural effusion with compressive atelectasis in the right lung base. Mediastinum: Mediastinal contours appear normal. Cardiomegaly. Bones and chest wall: No suspicious bony lesions. Overlying soft tissues appear unremarkable. IMPRESSION: Large right pleural effusion with compressive atelectasis in the right lung base. Dictated by: Quintin Collins M.D. on 08/28/2023 at 11:48 Approved by: Quintin Collins M.D. on 08/28/2023 at 11:48 CXR post thoracentesis: Radiologist's Impression: [place] [address] XRay Report Signed Patient: Kin Marie MR#: [id number] : 1955 Acct:[id number] Age/Sex: 67 / M Date of Service: 08/29/23 Loc: ED Accession Number: [id number] Procedure: XR chest 1V Ordering Provider: Latonia Keenan D.O. PROCEDURE: XR CHEST 1V INDICATIONS: sob, s/p thoracentesis TECHNIQUE: One view of the chest was acquired. COMPARISON: [facility], , XR CHEST 1V, 08/28/2023, 10:05. FINDINGS: Surgical changes and devices: None. Lungs and pleura: No pneumothorax. Right pleural effusion is decreased. Right basilar opacities most likely atelectasis. Mediastinum: Mediastinal contours appear normal. Heart size is normal. Bones and chest wall: No suspicious bony lesions. Overlying soft tissues appear unremarkable. IMPRESSION: No pneumothorax post thoracentesis. Dictated by: Angelica Zarate M.D. on 08/29/2023 at 13:50 Approved by: Angelica Zarate M.D. on 08/29/2023 at 13:50 ECG Data Attestation: I personally reviewed and interpreted this ECG as follows: Interpretation: Incomplete right bundle-branch, rhythm of 74 QRS of 106 QTC of 448. Sinus rhythm rate of 79 IA 190 QRS of 98 QTC 424. Incomplete right bundle, flipped T-waves in 1 and AVF, T-waves depressed V5 and 6. MDM Narrative Medical decision making narrative: CC: Acute episode of dyspnea during outpatient diagnostic study for evaluation of left lower extremity arteries prior to cardiac surgery Complicating co-morbidities: Diabetes, recent left lower extremity fracture in a snf facility for rehab secondary to that, Data collected from: patient, caregiver from his current care facility Social determinants of health that may influence the patients condition: Recent surgery currently in snf facility for rehab Medical records reviewed: Records from [facility] are reviewed. He had an admission date of 03/06/2023 and a discharge date April 21 (47day admit). Underwent ORIF, at the time noted to have severe aortic stenosis with an echocardiogram showing ejection fraction to 60-65%. He was treated for an atypical pneumonia acute metabolic encephalopathy with eventual discharge to snf facility for continued rehab Differential considered: Acute coronary event, pulmonary embolism, pneumonia, sepsis Exam documented above, pertinent findings include: Pale, diminished breath sounds on the right, loud systolic murmur, significant chronic venous stasis dermatitis with bilateral edema. He is alert and appropriate otherwise able to speak in full sentences Lab Test results independently reviewed as above. Pertinent findings: CBC is notable for normal white blood cell count. Mild anemia with hemoglobin at 10.3 and 31.8. This is not a dramatic change from his baseline. Platelets are normal Chemistries show appropriate renal function with creatinine at 1.19 and GFR greater than 60. Bili AST ALT are appropriate. Alk-phos is minimally elevated at 130. BNP is slightly elevated at 9360 Troponin is significantly elevated to 8 Independently reviewed EKG: Sinus rhythm at a rate of 74, poor baseline, nonspecific ST changes, not meeting criteria for STEMI Repeat EKG at11:12 shows sinus rhythm at a rate of 75. ST depression and flipped T-waves anterolaterally. Not meeting STEMI criteria Imaging studies independently reviewed: Chest x-ray shows large right sided pleural effusion with at least 2/3 of the lung space involved. Mild cardiomegaly. Consultations:[address] [facility] to see if beds available for transfer. [address] [facility] still looking for Tele beds, will check back after 730pm Treatments: Nitroglycerin is given to see if it helps with any of the chest tightness. He is started on heparin with the troponin returning positive Re-evaluations: Discussion: 67-year-old gentleman with NSTEMI, large right pleural effusion, aortic valvular disease scheduled for surgical intervention at [facility] currently on heparin. 08/29/2023 Dr. Keenan: Patient signed out to myself by Dr. Tony. 67-year-old gentleman history of type 2 diabetes, severe aortic valvular disease, ETOH with Wernicke's encephalopathy who is scheduled for valve evaluation/surgery in [place]. He was having an ultrasound to evaluate preoperatively here became increasingly pale diaphoretic and short of breath. Patient overnight has been on oxygen, has had heparin drip with positive troponins, EKG changes consistent with NSTEMI, patient also has a large pleural effusion, CHF with known severe aortic stenosis. Patient's troponin peaked at 3.28 trending down words to 2.43 overnight, BNP of 9360 with no priors for comparison. Patient has creatinine of 1.07, potassium was 5 2 otherwise normal electrolytes and LFTs. Hemoglobin was down and we will continue to trend. Patient has not had any active bleeding. Patient received, nitro, is currently on a heparin drip with nitro paste in place. Goal is for transfer to [facility], site did not have beds available last night but would like for him to return as he is scheduled for valve replacement. Patient was requesting discharge home because ?you are not doing anything?. Patient seen and evaluated by myself after discussion. Spoke with Dr. Estrada, hospitalist at . Accepts for transfer, awaiting bed assignment. No availability at [facility] currently. Patient had thoracentesis with radiology while awaiting transfer, patient felt much improved. Repeat chest x-ray does not show any pneumothorax but does show some improvement in aeration. Patient's continues to require oxygen but needs decreased looks much more comfortable. Critical Care Time <Bhakti Tony, DO - Last Filed: 08/30/23 02:18> Critical Care Time Attestation: The high probability of a clinically significant, sudden or life threatening deterioration of the [cardiac, pulm] system(s) required my full and direct attention, intervention and personal management. The aggregate critical care time was 45 minutes. This time is in addition to time spent performing reported procedures but includes the following: [x] Data Review and interpretation [x] Patient assessment and monitoring of vital signs [x] Documentation [x] Medication orders and management <Latonia Keenan, - Last Filed: 08/29/23 19:04> Critical Care Time Critical Care Time: Yes Total Critical Care Time: 45 Attestation: The high probability of a clinically significant, sudden or life threatening deterioration of the [cardiac, pulm] system(s) required my full and direct attention, intervention and personal management. The aggregate critical care time was [] minutes. This time is in addition to time spent performing reported procedures but includes the following: [x] Data Review and interpretation [x] Patient assessment and monitoring of vital signs [x] Documentation [x] Medication orders and management Discharge Plan Departure Patient Disposition: [facility] Clinical Impression: Acute non-ST elevation myocardial infarction (NSTEMI), Acute dyspnea, Pleural effusion on right, Aortic stenosis, severe Prescriptions: No Action atorvastatin 40 mg tablet 40 mg PO DAILY amitriptyline 50 mg tablet 50 mg PO ONCE PM tamsulosin 0.4 mg capsule 0.8 mg PO QPM pantoprazole 40 mg tablet,delayed release (DR/EC) 40 mg PO DAILY metformin 1,000 mg tablet 1,000 mg PO BID gabapentin 300 mg capsule 600 mg PO TID finasteride 5 mg tablet 5 mg PO DAILY spironolactone 50 mg tablet 50 mg PO DAILY duloxetine 20 mg capsule,delayed release(DR/EC) 20 mg PO BID Referrals: Jovanny Mccann FNP-C [Primary Care Provider] -
[2023-08-28] MEDS: ASPIRIN 81 MG CHEW TAB 324 MG PO (11:08)
[2023-08-28 11:21] LABS: Reflexed Lactate in 2 Hours Y
[2023-08-28] MEDS: NITROGLYCERIN 0.4 MG SL TAB SL ×3 (11:31→11:52)
[2023-08-28] MEDS: HEPARIN 5,000 UNIT/ML VIAL 5000 UNIT IV (11:43)
[2023-08-28] MEDS: HEPARIN DRIP 25,000 UNIT/500 ML IV.SOLN 20 UNIT IV (11:44)
[2023-08-28] MEDS: ACETAMINOPHEN 325 MG TABLET 975 MG PO (11:50)
[2023-08-28] MEDS: NITROGLYCERIN OINT 1 INCH/GM OINT...G. 0.5 INCH TOP (12:03)
[2023-08-28 12:09] LABS: Lactate 2HR (Lactic Acid Rflx) 1.3 mmol/L (0.7-2.1); PTT Partial Thromboplastin Tim 40 SECONDS (25.1-36.5)
[2023-08-28 12:23] LABS: Troponin I 0.301 ng/mL (0.01-0.034)
--- NOTE | 2023-08-28 16:39 | PC.NURSE ---
Reassess; no change. Pt on 2L NC sattaing 92% and above.
[2023-08-28] MEDS: ONDANSETRON 4 MG/2 ML INJ IV (16:48)
[2023-08-28] MEDS: MORPHINE 2 MG/ML INJ IV (16:49)
--- NOTE | 2023-08-28 18:10 | PC.NURSE ---
no neurological concerns. no pt or visual reports of bleeding.
--- NOTE | 2023-08-28 18:12 | PC.NURSE ---
reassess no change.
--- NOTE | 2023-08-28 18:23 | PC.NURSE ---
Attempted to give nursing report to Lisette Nicole. Call sent to [facility].
[2023-08-28 18:27] LABS: PTT Partial Thromboplastin Tim 50 SECONDS (25.1-36.5)
--- NOTE | 2023-08-28 18:38 | PC.NURSE ---
Therapeutic PTT range>no change indicated per policy. @ [phone]
--- NOTE | 2023-08-28 18:55 | PC.NURSE ---
Reassess; no change
--- NOTE | 2023-08-28 18:56 | PC.NURSE ---
Reassess; no change
--- NOTE | 2023-08-28 18:56 | PC.NURSE ---
Reassess; no change
--- NOTE | 2023-08-28 18:57 | PC.NURSE ---
Reassess; no change
--- NOTE | 2023-08-28 19:05 | PC.NURSE ---
report given to paras macy
[2023-08-29] VITALS (17 sets, daily range): BP systolic 129–167; BP diastolic 58–78; PULSE 72–85; RESP 16–34; O2SAT 88–96
[2023-08-29 00:08] LABS: PTT Partial Thromboplastin Tim 47 SECONDS (25.1-36.5)
[2023-08-29 00:25] LABS: Troponin I 0.243 ng/mL (0.01-0.034)
--- NOTE | 2023-08-29 04:19 | DI.US.S_ITS ---
PROCEDURE: US THORACENTESIS INDICATIONS: hypoxia pleural effusion TECHNIQUE: The indications, alternatives, benefits, risks, and complications of the procedure were explained to the patient. Written informed consent was obtained and placed in the chart. The chest was examined sonographically, and an appropriate site was chosen for thoracentesis. The skin was prepared and draped in the usual sterile fashion, and 1% lidocaine was infiltrated from the skin down through the pleural surface. A 19-gauge catheter-covered needle was then introduced into the pleural space, the catheter was advanced and the needle was withdrawn, and thereafter pleural fluid was aspirated. The catheter was then removed and a dressing was applied. COMPARISON: [facility], CR, XR CHEST 1V, 08/28/2023, 10:05. FINDINGS: Access site: Right hemithorax. Needle: One-Step centesis catheter with introducer needle. Fluid volume and description: 1500 mL; catalina color. Fluid sent for diagnostic testing: Not requested by ordering physician. Medications: 1% lidocaine for local anaesthesia. Complications: None; post-procedural chest radiograph is pending to assess for pneumothorax. IMPRESSION: Successful ultrasound-guided thoracentesis. Dictated by: Angelica Zarate M.D. on 08/29/2023 at 13:33 Approved by: Angelica Zarate M.D. on 08/29/2023 at 13:35
[2023-08-29 06:11] LABS: Add Manual Diff / Slide Review NO; Basophils Absolute Auto 100 /uL (0-100); Basophils Percent Auto 1.5 % (0-2); Eosinophils Absolute Auto 300 /uL (0-450); Eosinophils Percent Auto 3.3 % (2-4); Hematocrit 26.7 % (41-53); Hemoglobin 8.9 g/dL (13.5-17.5); Lymphocytes Absolute Auto 1800 /uL (1100-4500); Lymphocytes Percent Auto 22.8 % (25-40); Mean Corpuscular HGB Conc 33.2 % (30-36); Mean Corpuscular Hemoglobin 27.4 PG (26-34); Mean Corpuscular Volume 82.6 fL (80-100); Monocytes Absolute Auto 800 /uL (0-900); Monocytes Percent Auto 10.3 % (3-14); Neutrophils Absolute Auto 4800 /uL (1500-7000); Neutrophils Percent Auto 62.1 % (50-75); Platelet Count 240 X10^3/uL (150-400); Red Blood Cell Count 3.23 X10^6/uL (4.5-5.9); Red Cell Distribution Width 14.3 % (11.6-14.8); White Blood Cell Count 7.7 X10^3/uL (4.5-11.0)
[2023-08-29 06:32] LABS: Alanine Aminotransferase 14 IU/L (<50); Albumin 3.4 g/dL (3.5-5.0); Alkaline Phosphatase 111 U/L (38-126); Aspartate Aminotransferase 34 IU/L (17-59); BUN Creatinine Ratio 25.2 (6-22); Bilirubin Total 0.8 mg/dL (0.2-1.3); Blood Urea Nitrogen 27 mg/dL (9-20); Calcium 8.9 mg/dL (8.4-10.2); Carbon Dioxide 27 mmol/L (22-32); Chloride 108 mmol/L (98-107); Estimated Glomerular Filt Rate > 60 mL/min (>60); Globulin 3.4 g/dL (1.7-4.1); Glucose 123 mg/dL (80-110); HEMOLYSIS < 15 (0-50); Potassium 5.2 mmol/L (3.4-5.1); Sodium 141 mmol/L (137-145); Total Protein 6.8 g/dL (6.3-8.2)
[2023-08-29 07:35] LABS: PTT Partial Thromboplastin Tim 44 SECONDS (25.1-36.5)
[2023-08-29] MEDS: ONDANSETRON 4 MG/2 ML INJ IV (08:38)
--- NOTE | 2023-08-29 09:15 | PC.NURSE ---
Heparin Drip confirmed during report with Manju RN
[2023-08-29] MEDS: ASPIRIN 81 MG CHEW TAB PO (09:28)
[2023-08-29] MEDS: OXYCODONE IR 5 MG TABLET 10 MG PO (09:29)
[2023-08-29] MEDS: ATORVASTATIN 20 MG TABLET 80 MG PO (09:30)
[2023-08-29] MEDS: SPIRONOLACTONE 25 MG TABLET 50 MG PO (09:30)
[2023-08-29] MEDS: FUROSEMIDE 40 MG/4 ML VIAL IV (09:31)
[2023-08-29] MEDS: PANTOPRAZOLE 40 MG VIAL IV (09:31)
--- NOTE | 2023-08-29 09:42 | PC.NURSE ---
Patient reports chest pressure like a knee in my chest Patient reports generalized discomfort 8/10, medicated with oxycodone per orders. Patient oxygen hovering around 88% on 3L NC it does feel little labored Dr Keenan aware of changes. Patient not eating at this time, holding insulin.
--- NOTE | 2023-08-29 09:44 | PC.NURSE ---
called for repeat EKG and Eval and treat by RT
--- NOTE | 2023-08-29 10:07 | PC.NURSE ---
Patient up to bedside to urinate, oxygen sats dropped to mid 80's. Increase SOB with exertion
[2023-08-29] MEDS: NITROGLYCERIN OINT 1 INCH/GM OINT...G. 0.5 INCH TOP (10:31)
--- NOTE | 2023-08-29 10:34 | PC.NURSE ---
Old nitro paste removed and new order placed
--- NOTE | 2023-08-29 10:34 | PC.NURSE ---
patient being marked for potential thoracentesis
[2023-08-29 12:25] LABS: Add Manual Diff / Slide Review NO; Basophils Absolute Auto 0 /uL (0-100); Basophils Percent Auto 0.6 % (0-2); Eosinophils Absolute Auto 200 /uL (0-450); Eosinophils Percent Auto 2.6 % (2-4); Hematocrit 26.9 % (41-53); Hemoglobin 8.9 g/dL (13.5-17.5); Lymphocytes Absolute Auto 1000 /uL (1100-4500); Lymphocytes Percent Auto 12.6 % (25-40); Mean Corpuscular HGB Conc 33.2 % (30-36); Mean Corpuscular Hemoglobin 27.6 PG (26-34); Mean Corpuscular Volume 83.1 fL (80-100); Monocytes Absolute Auto 700 /uL (0-900); Monocytes Percent Auto 8.4 % (3-14); Neutrophils Absolute Auto 6000 /uL (1500-7000); Neutrophils Percent Auto 75.8 % (50-75); Platelet Count 239 X10^3/uL (150-400); Red Blood Cell Count 3.24 X10^6/uL (4.5-5.9); Red Cell Distribution Width 14.3 % (11.6-14.8); White Blood Cell Count 7.9 X10^3/uL (4.5-11.0)
[2023-08-29 12:39] LABS: Alanine Aminotransferase 14 IU/L (<50); Albumin 3.4 g/dL (3.5-5.0); Alkaline Phosphatase 109 U/L (38-126); Aspartate Aminotransferase 17 IU/L (17-59); BUN Creatinine Ratio 22.5 (6-22); Bilirubin Total 0.9 mg/dL (0.2-1.3); Blood Urea Nitrogen 25 mg/dL (9-20); Calcium 9.1 mg/dL (8.4-10.2); Carbon Dioxide 27 mmol/L (22-32); Chloride 106 mmol/L (98-107); Estimated Glomerular Filt Rate > 60 mL/min (>60); Globulin 3.4 g/dL (1.7-4.1); Glucose 160 mg/dL (80-110); HEMOLYSIS < 15 (0-50); Potassium 5.2 mmol/L (3.4-5.1); Sodium 139 mmol/L (137-145); Total Protein 6.8 g/dL (6.3-8.2)
[2023-08-29] MEDS: HEPARIN DRIP 25,000 UNIT/500 ML IV.SOLN 20 UNIT IV (13:06)
--- NOTE | 2023-08-29 13:36 | DI.RAD.S_ITS ---
PROCEDURE: XR CHEST 1V INDICATIONS: sob, s/p thoracentesis TECHNIQUE: One view of the chest was acquired. COMPARISON: [facility], CR, XR CHEST 1V, 08/28/2023, 10:05. FINDINGS: Surgical changes and devices: None. Lungs and pleura: No pneumothorax. Right pleural effusion is decreased. Right basilar opacities most likely atelectasis. Mediastinum: Mediastinal contours appear normal. Heart size is normal. Bones and chest wall: No suspicious bony lesions. Overlying soft tissues appear unremarkable. IMPRESSION: No pneumothorax post thoracentesis. Dictated by: Angelica Zarate M.D. on 08/29/2023 at 13:50 Approved by: Angelica Zarate M.D. on 08/29/2023 at 13:50
== END 2023-08-29 13:55 | disposition short-term general hospital (02) ==
PROVIDERS: Emergency Medicine; Emergency Provider Emergency Medicine; PCP Nurse Practitioner
DX: I21.4 Non-ST elevation (NSTEMI) myocardial infarction (principal); R07.9 Chest pain, unspecified; R06.00 Dyspnea, unspecified; J90 Pleural effusion, not elsewhere classified; I35.0 Nonrheumatic aortic (valve) stenosis
CPT/HCPCS: 32555; 36415; 71045; 80053; 82962; 83605; 83880; 84484; 85025; 85610; 85730; 93005; 96365; 96366; 96375; 96376; 99285; 99291; C9113; J1644; J1815; J1940; J2270; J2405